=== PATIENT | female | born 1970 | race Caucasian/White ===

== ENCOUNTER 2016-05-24 02:16 | Emergency (ER) | payer MEDICAID ==
[~2016-05-24] VITALS: Ht 157.5 cm; Wt 112.2 kg
[2016-05-24 02:16] VITALS: Ht 157.5 cm; Wt 112.2 kg
--- OUTSIDE RECORDS SUMMARY | 2016-05-24 02:24 | XMS REPORT | Referral Summary ---
Author Organization Unknown Address Unknown Phone Unavailable Care Team Providers Care Behavioral Geneticist Name Role Phone Itzel Kerns Primary Care Physician [phone] Encounter VC Date(s): 04/05/14 - 04/05/14 [facility] [address] [place] [id number] Discharge Diagnosis: Sinusitis Discharge Diagnosis: Bronchitis Discharge Disposition: Home or Self Care Attending Physician: Mo Martin MD Admitting Physician: Mo Martin MD Vital Signs Most recent to 1 oldest [Reference Range]: Temperature Oral 36.6 degC [35.8-37.3 degC] (04/05/14 12:30 PM) Temperature Temporal 36.7 degC Artery [36.3-37.8 (04/05/14 10:09 AM) degC] Peripheral Pulse 75 bpm Rate [60-100 bpm] (04/05/14 12:30 PM) Heart Rate Monitored 69 bpm [60-100 bpm] (04/05/14 11:12 AM) Respiratory Rate 16 br/min [14-20 br/min] (04/05/14 11:12 AM) Blood Pressure 137/89 mmHg [90-140/60-90 mmHg] (04/05/14 12:30 PM) Most recent to 1 oldest [Reference Range]: SpO2 98 % (04/05/14 12:30 PM) Problem List Condition Effective Dates Status Health Status Informant Cardiomyopathy(Confi Resolved rmed) CCF - Congestive Active cardiac failure unspec(Confirmed) Diabetes(Confirmed) Resolved HTN(Confirmed) Resolved Hepatitis/jaudice(Co Active nfirmed) Mitral Resolved regurgitation(Confir med) Obesity Active unspec(Confirmed) Allergies, Adverse Reactions, Alerts Substance Reaction Severity Status amoxicillin Active Latex1 Active lisinopril Active 1RASH Medications albuterol CFC free 90 mcg/inh inhalation aerosol 2 puffs, Inhalation, QID, as needed for wheezing, # 1 Each, 0 Refill(s), Pharmacy: [facility] [id number] Start Date: 12/28/13 Status: Ordered albuterol CFC free 90 mcg/inh inhalation aerosol 1 puffs, Inhalation, QID, as needed for wheezing, # 6.7 g, 0 Refill(s), Pharmacy : [facility] [id number] Start Date: 04/05/14 Status: Ordered Aspir-Low mg, Oral, Daily, 0 Refill(s) Start Date: 08/31/13 Status: Ordered azithromycin 250 mg oral tablet 1 packets, Oral, Once, as directed on package labeling, # 6 tabs, 0 Refill(s), Pharmacy: [facility] [id number], 1 packets Oral Once,Instr:as directed on package labeling Special Instructions: as directed on package labeling Start Date: 04/05/14 Status: Ordered candesartan 4 mg oral tablet See Instructions, TAKE ONE TABLET BY MOUTH EVERY DAY, # 30 tabs, 3 Refill(s), Pharmacy: [facility] [id number], TAKE ONE TABLET BY MOUTH EVERY DAY Special Instructions: TAKE ONE TABLET BY MOUTH EVERY DAY Start Date: 01/18/14 Status: Ordered carvedilol 12.5 mg oral tablet See Instructions, 1/2 tabs mg Oral BID, # 60 tabs, 3 Refill(s), Pharmacy: [facility] [id number], 1/2 tabs mg Oral BID Special Instructions: 1/2 tabs mg Oral BID Start Date: 12/11/13 Status: Ordered citalopram 20 mg oral tablet See Instructions, TAKE ONE TABLET BY MOUTH EVERY DAY, # 30 tabs, 3 Refill(s), Pharmacy: [facility] [id number], TAKE ONE TABLET BY MOUTH EVERY DAY Special Instructions: TAKE ONE TABLET BY MOUTH EVERY DAY Start Date: 03/11/14 Status: Ordered famotidine 20 mg oral tablet 1 tabs, Oral, BID, # 60 tabs, 3 Refill(s), Pharmacy: [facility] [id number], 1 tabs Oral BID Start Date: 12/11/13 Status: Ordered Farxiga 5 mg oral tablet 1 tabs, Oral, Daily, # 30 tabs, 11 Refill(s) Start Date: 10/09/13 Status: Ordered Flector Patch 1.3% topical film, extended release 1 patches, Topical, BID, as needed for pain, # 30 patches, 1 Refill(s), Pharmacy : [facility] Start Date: 12/28/13 Status: Ordered furosemide 20 mg oral tablet See Instructions, 3 tabs mg Oral BID, 0 Refill(s) Special Instructions: 3 tabs mg Oral BID Start Date: 08/31/13 Status: Ordered Klor-Con M20 mEq, Oral, BID, 0 Refill(s) Start Date: 08/31/13 Status: Ordered Lantus Solostar Pen 100 units/mL subcutaneous solution 36 units, SubCutaneous, Bedtime (once a day), # 15 Each, 3 Refill(s), Pharmacy: [facility], 36 units SubCutaneous Bedtime (once a day) Start Date: 12/31/13 Status: Ordered metFORMIN 500 mg oral tablet 1 tabs, Oral, BID, # 60 tabs, 3 Refill(s), Pharmacy: [facility], 1 tabs Oral BID Start Date: 11/04/13 Status: Ordered NovoLOG FlexPen 100 units/mL subcutaneous solution 12 units, SubCutaneous, TIDAC, # 15 mL, 3 Refill(s), Pharmacy: [facility], 12 units SubCutaneous TIDAC Start Date: 12/31/13 Status: Ordered promethazine 12.5 mg oral tablet 1 tabs, Oral, q6hr, # 20 tabs, 0 Refill(s), Pharmacy: [facility], 1 tabs Oral q6hr Start Date: 03/26/14 Stop Date: 04/30/14 Status: Ordered rosuvastatin 20 mg oral tablet 1 tabs, Oral, Bedtime (once a day), # 30 tabs, 11 Refill(s) Start Date: 10/09/13 Status: Ordered spironolactone 25 mg oral tablet 1 tabs, Oral, Daily, # 30 tabs, 0 Refill(s) Start Date: 08/31/13 Status: Ordered Tussionex PennKinetic 10 mg-8 mg/5 mL oral suspension, extended release 5 mL, Oral, q12hr, as needed for cough, X 7 days, # 70 mL, 0 Refill(s) Start Date: 04/05/14 Stop Date: 04/12/14 Status: Ordered Results No data available for this section Immunizations Vaccine Date Refusal Reason influenza virus vaccine, live 11/18/12 pneumococcal 13-valent conjugate vaccine 11/18/12 Procedures Procedure Date Related Diagnosis Body Site Cardiomyopathy section Pacemaker Social History Social History Type Response Smoking Status Never smoker Assessment and Plan Future Scheduled TestsReferral* Return to Clinic 08/31/13 5:06 PM Referrals to Other Providers Referred by: Luba Kerns DO
--- OUTSIDE RECORDS SUMMARY | 2016-05-24 02:24 | XMS REPORT | Continuity of Care Document ---
Author Author [facility] Organization [facility] Address Unknown Phone Unavailable Allergies Medications Problems Procedures Results Encounters ACCT No. Visit Date/Time Discharge Status Pt. Type Provider Facility Loc./Unit Complaint [id number] 05/29/2013 11:03:00 05/29/2013 23 :59:59 [facility] Outpatient [id number] 04/07/2013 08:18:00 04/07/2013 23 :59:59 [facility] Outpatient
--- OUTSIDE RECORDS SUMMARY | 2016-05-24 02:24 | XMS REPORT | Referral Summary ---
Author Author [facility] Organization [facility] Address Unknown Phone Unavailable Care Team Providers Care Kiln Tester Name Role Phone Itzel Kerns Primary Care Physician [phone] Encounter VC DONNA [id number] Date(s): 02/03/15 - 02/03/15 [facility] [address], [place] [address] Discharge Diagnosis: Right foot pain Discharge Disposition: 01-Home or Self Care Attending Physician: Tristin Garcia MD Admitting Physician: Mohsen Roberts MD Vital Signs Most recent to 1 oldest [Reference Range]: Temperature Oral 36.8 degC [35.8-37.3 degC] (02/03/15 8:11 AM) Peripheral Pulse 78 bpm Rate [60-100 bpm] (02/03/15 9:21 AM) Respiratory Rate 18 br/min [14-20 br/min] (02/03/15 9:21 AM) Blood Pressure 110/72 mmHg [90-140/60-90 mmHg] (02/03/15 9:21 AM) SpO2 97 % (02/03/15 9:21 AM) Problem List Condition Effective Dates Status Health Status Informant Cardiomyopathy(Confi Active rmed) [facility] - Congestive Active cardiac failure unspec(Confirmed) Diabetes(Confirmed) Resolved HTN(Confirmed) Active Hyperlipidemia(Confi Active rmed) Hepatitis/jaudice(Co < 09/30/13 Resolved nfirmed) Mitral Active regurgitation(Confir med) Obesity Active unspec(Confirmed) Allergies, Adverse Reactions, Alerts Substance Reaction Severity Status amoxicillin Active Latex1 Active lisinopril Active 1RASH Medications albuterol CFC free 90 mcg/inh inhalation aerosol 2 puffs, Inhalation, QID, as needed for wheezing, # 1 Each, 0 Refill(s), Pharmacy: [facility] Start Date: 12/28/13 Status: Ordered Aspir-Low mg, Oral, Daily, 0 Refill(s) Start Date: 08/31/13 Status: Ordered candesartan 4 mg oral tablet See Instructions, TAKE ONE TABLET BY MOUTH EVERY DAY, # 30 tabs, 5 Refill(s), Pharmacy: [facility] [address], TAKE ONE TABLET BY MOUTH EVERY DAY Start Date: 09/16/14 Status: Ordered carvedilol 12.5 mg oral tablet See Instructions, 1/2 tabs mg Oral BID, # 60 tabs, 3 Refill(s), Pharmacy: [facility] [id number], 1/2 tabs mg Oral BID Start Date: 12/24/14 Status: Ordered citalopram 20 mg oral tablet 40 mg 2 tabs, Oral, Daily, X 30 days, # 60 tabs, 5 Refill(s), Pharmacy: [facility] [address], 2 tabs Oral Daily,x30 days Start Date: 12/16/14 Stop Date: 06/14/15 Status: Ordered Crestor 20 mg oral tablet See Instructions, 1 tabs Oral Bedtime (once a day), # 30 tabs, eRx: [place] [address], 1 tabs Oral Bedtime (once a day) Start Date: 01/19/15 Status: Ordered famotidine 20 mg oral tablet 20 mg 1 tabs, Oral, BID, # 60 tabs, 3 Refill(s), Pharmacy: [facility] [address] , 1 tabs Oral BID Start Date: 07/21/14 Status: Ordered Flector Patch 1.3% topical film, extended release 1 patches, Topical, BID, as needed for pain, # 60 patches, 1 Refill(s), Pharmacy : [facility] [address] Start Date: 01/03/15 Status: Ordered furosemide 20 mg oral tablet See Instructions, 3 tabs mg Oral BID, # 540 Each, 3 Refill(s), Pharmacy: [facility] [address], 3 tabs mg Oral BID Start Date: 07/21/14 Status: Ordered glucometer strips glucometer strips, See Instructions, Contour Next strips Test 4x/day dx: uncontrolled DM, # 1 boxes, 11 Refill(s), Pharmacy: [facility] [place] [address], Contour Next strips; Test 4x/day; dx: uncontrolled DM Start Date: 08/31/14 Status: Ordered ibuprofen 600 mg oral tablet 600 mg 1 tabs, Oral, TID, # 90 tabs, 0 Refill(s), Pharmacy: [facility], 1 tabs Oral TID Start Date: 01/26/15 Status: Ordered Klor-Con M20 oral tablet, extended release 20 mEq 1 tabs, Oral, BID, # 180 tabs, 3 Refill(s), Pharmacy: [facility], 1 tabs Oral BID Start Date: 07/21/14 Status: Ordered Lantus Solostar Pen 100 units/mL subcutaneous solution 36 units, SubCutaneous, Bedtime (once a day), # 15 Each, 5 Refill(s), Pharmacy: [facility] [place] [address], 36 units SubCutaneous Bedtime (once a day) Start Date: 01/19/15 Status: Ordered metFORMIN 500 mg oral tablet 1 tabs, Oral, BID, # 60 tabs, 5 Refill(s), Pharmacy: [facility] [address], 1 tabs Oral BID Start Date: 05/06/14 Status: Ordered [place] 5 mg-325 mg oral tablet 1 tabs, Oral, q6hr, as needed for pain, # 12 tabs, 0 Refill(s) Start Date: 02/03/15 Stop Date: 02/10/15 Status: Ordered NovoLOG FlexPen 100 units/mL subcutaneous solution 12 units, SubCutaneous, TIDAC, # 15 mL, 3 Refill(s), Pharmacy: [facility], [facility], 12 units SubCutaneous TIDAC Start Date: 12/31/13 Status: Ordered Relion Pen [place] 31gx6 mm Relion Pen [place] 31gx6 mm, See Instructions, [facility] ad directed Dx:250.00, # 1 bottles, 5 Refill(s), Pharmacy: [facility] [place] [address], [facility] ad directed; Dx: 250.00 Start Date: 09/16/14 Status: Ordered spironolactone 25 mg oral tablet 1 tabs, Oral, Daily, # 30 tabs, 0 Refill(s) Start Date: 08/31/13 Status: Ordered Results No data available for this section Immunizations Vaccine Date Refusal Reason influenza virus vaccine, live 11/18/12 pneumococcal 23-polyvalent vaccine 11/18/12 Procedures Procedure Date Related Diagnosis Body Site Cardiomyopathy section Pacemaker Social History Social History Type Response Smoking Status Never smoker Assessment and Plan No data available for this section
--- OUTSIDE RECORDS SUMMARY | 2016-05-24 02:24 | XMS REPORT | Referral Summary ---
Author Author [facility], [facility], Family Medicine Organization [facility], [facility] Address Unknown Phone Unavailable Care Team Providers Care Air Conditioning Mechanic Industrial Name Role Phone Itzel Kerns Primary Care Physician [phone] Encounter VC Date(s): 12/16/14 - 12/16/14 [facility], [facility], [id number] [place] [address] Discharge Diagnosis: Acute URI Discharge Disposition: 01-Home or Self Care Attending Physician: Luba Kerns DO Vital Signs Most recent to 1 oldest [Reference Range]: Apical Heart Rate 80 bpm [60-100 bpm] (12/16/14 8:59 AM) Blood Pressure 128/78 mmHg [90-140/60-90 mmHg] (12/16/14 8:59 AM) SpO2 98 % (12/16/14 8:59 AM) Problem List Condition Effective Dates Status Health Status Informant Cardiomyopathy(Confi Active rmed) CCF - Congestive Active cardiac failure unspec(Confirmed) Diabetes(Confirmed) Resolved DM2 (diabetes Active mellitus, type 2)(Confirmed) HTN(Confirmed) Active Hyperlipidemia(Confi Active rmed) Hepatitis/jaudice(Co < 09/30/13 Resolved nfirmed) Mitral Active regurgitation(Confir med) Obesity Active unspec(Confirmed) Allergies, Adverse Reactions, Alerts Substance Reaction Severity Status amoxicillin Active Latex1 Active lisinopril Active 1RASH Medications albuterol CFC free 90 mcg/inh inhalation aerosol 2 puffs, Inhalation, QID, as needed for wheezing, # 1 Each, 11 Refill(s), Pharmacy: [facility] Start Date: 04/06/15 Status: Ordered Aspir-Low mg, Oral, Daily, 0 Refill(s) Start Date: 08/31/13 Status: Ordered candesartan 4 mg oral tablet See Instructions, TAKE ONE TABLET BY MOUTH ONCE DAILY, # 30 tabs, eRx: [facility] 346, TAKE ONE TABLET BY MOUTH ONCE DAILY Start Date: 05/23/15 Status: Ordered carvedilol 12.5 mg oral tablet See Instructions, 1/2 tabs mg Oral BID, # 60 tabs, 3 Refill(s), Pharmacy: [facility] 346, 1/2 tabs mg Oral BID Start Date: 12/24/14 Status: Ordered citalopram 20 mg oral tablet 40 mg 2 tabs, Oral, Daily, X 30 days, # 60 tabs, 5 Refill(s), Pharmacy: [place] [address], 2 tabs Oral Daily,x30 days Start Date: 05/20/15 Stop Date: 11/16/15 Status: Ordered Crestor 20 mg oral tablet See Instructions, 1 tabs Oral Bedtime (once a day), # 30 tabs, eRx: [place] [address], 1 tabs Oral Bedtime (once a day) Start Date: 05/23/15 Status: Ordered famotidine 20 mg oral tablet 20 mg 1 tabs, Oral, BID, # 60 tabs, 5 Refill(s), Pharmacy: [place] [address] , 1 tabs Oral BID Start Date: 03/03/15 Status: Ordered Flector Patch 1.3% topical film, extended release 1 patches, Topical, BID, as needed for pain, # 60 patches, 1 Refill(s), Pharmacy : [place] [address] Start Date: 01/03/15 Status: Ordered furosemide 20 mg oral tablet See Instructions, 3 tabs mg Oral BID, # 540 Each, 3 Refill(s), Pharmacy: [place] [address], 3 tabs mg Oral BID Start Date: 07/21/14 Status: Ordered glucometer strips glucometer strips, See Instructions, Contour Next strips Test 4x/day dx: uncontrolled DM, # 1 boxes, 11 Refill(s), Pharmacy: [place] [address], Contour Next strips; Test 4x/day; dx: uncontrolled DM Start Date: 08/31/14 Status: Ordered ibuprofen 600 mg oral tablet 600 mg 1 tabs, Oral, TID, # 90 tabs, 0 Refill(s), Pharmacy: [place] [address], 1 tabs Oral TID Start Date: 01/26/15 Status: Ordered Klor-Con M20 oral tablet, extended release 20 mEq 1 tabs, Oral, BID, # 180 tabs, 3 Refill(s), Pharmacy: [facility], 1 tabs Oral BID Start Date: 07/21/14 Status: Ordered Lantus Solostar Pen 100 units/mL subcutaneous solution 36 units, SubCutaneous, Bedtime (once a day), # 15 Each, 5 Refill(s), Pharmacy: [facility], 36 units SubCutaneous Bedtime (once a day) Start Date: 05/30/15 Status: Ordered metFORMIN 500 mg oral tablet 500 mg 1 tabs, Oral, BID, # 60 tabs, 5 Refill(s), Pharmacy: [facility], 1 tabs Oral BID Start Date: 03/03/15 Status: Ordered NovoLOG FlexPen 100 units/mL subcutaneous solution 12 units, SubCutaneous, TIDAC, # 15 mL, 5 Refill(s), Pharmacy: [facility], 12 units SubCutaneous TIDAC Start Date: 05/30/15 Status: Ordered Relion Pen Neddles 31gx6 mm Relion Pen Neddles 31gx6 mm, See Instructions, [facility] ad directed Dx:250.00, # 1 bottles, 5 Refill(s), Pharmacy: [facility], [facility] ad directed; Dx: 250.00 Start Date: 09/16/14 Status: Ordered spironolactone 25 mg oral tablet 1 tabs, Oral, Daily, # 30 tabs, 0 Refill(s) Start Date: 08/31/13 Status: Ordered Results Hematology Most recent to 1 oldest [Reference Range]: WBC [4.8-10.8 10.9 10*3/uL 10*3/uL] *HI* (12/16/14 9:23 AM) RBC [4.00-5.20] 4.34 (12/16/14 9:23 AM) Hgb [12.0-16.0 12.9 gm/dL gm/dL] (12/16/14 9:23 AM) Hct [37.0-47.0 %] 38.8 % (12/16/14 9:23 AM) MCV [82.0-99.0 fL] 89.4 fL (12/16/14 9:23 AM) MCH [27.0-32.0 pg] 29.7 pg (12/16/14 AM) MCHC [32.0-36.0 33.2 gm/dL gm/dL] (12/16/14 AM) RDW [11.5-14.5 %] 13.7 % (12/16/14 AM) Platelet [150-400 335 10*3/uL 10*3/uL] (12/16/14 AM) MPV [8.8-14.8 fL] 10.6 fL (12/16/14 AM) Immature 0.3 % Granulocytes (12/16/14) [0.0-1.0 %] Neutrophils [51-75 57 % %] (12/16/14 AM) Lymphocytes [20-46 33 % %] (12/16/14 AM) Monocytes [4-11 %] 8 % (12/16/14 AM) Eosinophils [0-4 %] 2 % (12/16/14 AM) Basophils [0-2 %] 0 % (12/16/14 AM) Neutro Absolute 6.17 10*3 [1.90-7.00 10*3] (12/16/14 AM) Lymph Absolute 3.57 10*3 [0.80-3.30 10*3] *HI* (12/16/14 AM) [place] Absolute 0.87 10*3 [0.30-1.00 10*3] (12/16/14 AM) Eos Absolute 0.25 10*3 [0.00-0.50 10*3] (12/16/14 AM) Baso Absolute 0.02 10*3 [0.00-0.20 10*3] (12/16/14 AM) Chemistry Most recent to 1 oldest [Reference Range]: Sodium Lvl [135-144 141 mEq/L mEq/L] (12/16/14 AM) Potassium Lvl 4.6 mEq/L [3.5-5.2 mEq/L] (12/16/1423 AM) Chloride [99-111 105 mEq/L mEq/L] (12/16/14 AM) CO2 [22-31 mEq/L] 27 mEq/L (12/16/14 AM) AGAP [3-20] 9 (12/16/14 AM) BUN [7-19 mg/dL] 12 mg/dL (12/16/14 AM) Glucose Lvl [70-99 284 mg/dL mg/dL] *HI* (12/16/14 AM) Creatinine Lvl 0.73 mg/dL [0.57-1.11 mg/dL] (12/16/14 AM) eGFR [>60 mL/min] >60 mL/min 1 (12/16/14 AM) Calcium Lvl 9.6 mg/dL [8.9-10.5 mg/dL] (12/16/14 AM) Albumin Lvl [3.5-5.0 3.9 gm/dL gm/dL] (12/16/14 AM) Total Protein 7.0 gm/dL [6.4-8.3 gm/dL] (12/16/14 AM) Globulin [1.8-4.0 3.1 gm/dL gm/dL] (12/16/14 AM) ALT [0-55 U/L] 11 U/L (12/16/14 AM) AST [5-34 U/L] 9 U/L (12/16/14 AM) Alk Phos [40-150 108 U/L U/L] (12/16/14 AM) Bili Total [0.2-1.2 0.7 mg/dL mg/dL] (12/16/14 AM) Chol [0-199 mg/dL] 119 mg/dL (12/16/14 AM) Trig [0-149 mg/dL] 89 mg/dL (12/16/14 AM) HDL [40-84 mg/dL] 34 mg/dL *LOW* (12/16/14 AM) LDL [0-130 mg/dL] 67 mg/dL (12/16/14 AM) VLDL Cholesterol 18 mg/dL [0-28 mg/dL] (12/16/14 9:23 AM) Cardiac Risk 3.5 [0.0-5.0] (12/16/14 9:23 AM) TSH with Reflex Free 0.88 T4 [0.35-4.94] (12/16/14 9:23 AM) Hgb A1c [4.1-5.6 %] 8.5 % *HI* (12/16/14 9:23 AM) eAvg Glucose 197.3 mg/dL (12/16/14 9:23 AM) 1Result Comment: Multiply eGFR results by 1.21 for race. Microbiology Reports TEST: Urine Culture STATUS: Auth (Verified) BODY SITE: SOURCE: Urine COLLECTED DATE/TIME: 12/16/14 9:12 AM Urine Culture Escherichia coli >100,000 cfu/ml ORGANISM:Escherichia coli Immunizations Vaccine Date Refusal Reason influenza virus vaccine, live 11/18/12 pneumococcal 23-polyvalent vaccine 11/18/12 Procedures Procedure Date Related Diagnosis Body Site Cardiomyopathy section Pacemaker Social History Social History Type Response Smoking Status Former smoker Assessment and Plan Extracted from: Title: Ambulatory Patient Education Author: Luba Kerns DO Date: Family Medicine Blood Glucose Monitoring Monitoring your blood glucose (also know as blood sugar) helps you to manage your diabetes. It also helps you and your health care provider monitor your diabetes and determine how well your treatment plan is working. WHY SHOULD YOU MONITOR YOUR BLOOD GLUCOSE? It can help you understand how food, exercise, and medicine affect your blood glucose. It allows you to know what your blood glucose is at any given moment. You can quickly tell if you are having low blood glucose (hypoglycemia) or high blood glucose (hyperglycemia). It can help you and your health care provider know how to adjust your medicines. It can help you understand how to manage an illness or adjust medicine for exercise. WHEN SHOULD YOU TEST? Your health care provider will help you decide how often you should check your blood glucose. This may depend on the type of diabetes you have, your diabetes control, or the types of medicines you are taking. Be sure to write down all of your blood glucose readings so that this information can be reviewed with your health care provider. See below for examples of testing times that your health care provider may suggest. Type 1 Diabetes Test 4 times a day if you are in good control, using an insulin pump, or perform multiple daily injections. If your diabetes is not well controlled or if you are sick, you may need to monitor more often. It is a good idea to also monitor: Before and after exercise. Between meals and 2 hours after a meal. Occasionally between 2:00 a.m. and 3:00 a.m. Type 2 Diabetes It can vary with each person, but generally, if you are on insulin, test 4 times a day. If you take medicines by mouth (orally), test 2 times a day. If you are on a controlled diet, test once a day. If your diabetes is not well controlled or if you are sick, you may need to monitor more often. HOW TO MONITOR YOUR BLOOD GLUCOSE Supplies Needed Blood glucose meter. Test strips for your meter. Each meter has its own strips. You must use the strips that go with your own meter. A pricking needle (lancet). A device that holds the lancet (lancing device). A journal or log book to write down your results. Procedure Wash your hands with soap and water. Alcohol is not preferred. Prick the side of your finger (not the tip) with the lancet. Gently milk the finger until a small drop of blood appears. Follow the instructions that come with your meter for inserting the test strip, applying blood to the strip, and using your blood glucose meter. Other Areas to Get Blood for Testing Some meters allow you to use other areas of your body (other than your finger) to test your blood. These areas are called alternative sites. The most common alternative sites are: The forearm. The thigh. The back area of the lower leg. The palm of the hand. The blood flow in these areas is slower. Therefore, the blood glucose values you get may be delayed, and the numbers are different from what you would get from your fingers. Do not use alternative sites if you think you are having hypoglycemia. Your reading will not be accurate. Always use a finger if you are having hypoglycemia. Also, if you cannot feel your lows (hypoglycemia unawareness), always use your fingers for your blood glucose checks. ADDITIONAL TIPS FOR GLUCOSE MONITORING Do not reuse lancets. Always carry your supplies with you. All blood glucose meters have a 24-hour "hotline" number to call if you have questions or need help. Adjust (calibrate) your blood glucose meter with a control solution after finishing a few boxes of strips. BLOOD GLUCOSE RECORD KEEPING It is a good idea to keep a daily record or log of your blood glucose readings. Most glucose meters, if not all, keep your glucose records stored in the meter. Some meters come with the ability to download your records to your home computer. Keeping a record of your blood glucose readings is especially helpful if you are wanting to look for patterns. Make notes to go along with the blood glucose readings because you might forget what happened at that exact time. Keeping good records helps you and your health care provider to work together to achieve good diabetes management. Document Released: 02/14/2004 Document Revised: 06/28/2014 Document Reviewed: [employer] Patient Information 2015 [employer]. This information is not intended to replace advice given to you by your health care provider. Make sure you discuss any questions you have with your health care provider. No follow up information was provided. Extracted from: Title: OV: UTI, cough, DM, mood, Author: Luba Kerns DO Date: 12/16/14 HLD Assessment/Plan 1.Cystitis complicated d/t diabetes -- tx w/ Cipro 500mg BID x 10 days Culture urine push fluids CBC w/ diff today f/u if not improving Diflucan 150mg po x 1 RX also sent to pharmacy if she develops vaginal dc w/ itch after abx. Ordered: CBC w/ Differential Office Visit Level 4 Est 98343 Return to Clinic 2.Acute URI Viral etiology tx symptomatically RX Guaifenesin-dextormethorphan Ordered: Office Visit Level 4 Est 64833 Return to Clinic 3.DM2 (diabetes mellitus, type 2) A1c today She is non-compliantw/ her insulin.We have many discussions about this in the past. Ordered: Comprehensive Metabolic Panel Hemoglobin A1c Office Visit Level 4 Est 23842 Return to Clinic 4.Depression Increase Celexa to 40mg daily. This would be max dose. Discussed window to effectiveness. Ordered: Office Visit Level 4 Est 01547 Return to Clinic TSH with Reflex Free T4 5.HLD (hyperlipidemia) Fasting lipids today She is on Crestor 20mg daily. Ordered: Lipid Panel Return to Clinic 6.Dysuria see #1 Ordered: Return to Clinic Urine Culture Orders: ciprofloxacin, 500 mg 1 tabs, Oral, q12hr, X 10 days, # 20 tabs, 0 Refill(s), Pharmacy: [facility] 346, 1 tabs Oral q12hr,x10 days citalopram, 40 mg 2 tabs, Oral, Daily, X 30 days, # 60 tabs, 5 Refill(s), Pharmacy: [facility] 346, 2 tabs Oral Daily,x30 days dextromethorphan-guaiFENesin, 2 caps, Oral, q4hr, as needed for cough, # 60 caps, 0 Refill(s), Pharmacy: [facility] 346 Referrals to Other Providers Referred by: Luba Kerns DO
--- OUTSIDE RECORDS SUMMARY | 2016-05-24 02:24 | XMS REPORT | Referral Summary ---
Author Author [facility] Organization [facility] Address Unknown Phone Unavailable Care Team Providers Care Shoe Stitcher Odd Name Role Phone Itzel Kerns Primary Care Physician [phone] Encounter VC Date(s): 03/21/15 - 03/21/15 [facility] [address] [id number] [facility] Discharge Diagnosis: Acute tonsillitis Discharge Disposition: 01-Home or Self Care Attending Physician: Provider, Immediate Care Attending Physician: Vazquez Ayoub APRN Admitting Physician: Provider, Immediate Care Vital Signs Most recent to 1 oldest [Reference Range]: Temperature Oral 36.9 degC [35.8-37.3 degC] (03/21/15 11:56 AM) Peripheral Pulse 72 bpm Rate [60-100 bpm] (03/21/15 11:56 AM) Blood Pressure 140/90 mmHg [90-140/60-90 mmHg] (03/21/15 11:56 AM) SpO2 97 % (03/21/15 11:56 AM) Problem List Condition Effective Dates Status [...] wheezing, # 1 Each, 11 Refill(s), Pharmacy: [facility] Start Date: 03/14/15 Status: Ordered Aspir-Low mg, Oral, Daily, 0 Refill(s) Start Date: 08/31/13 Status: Ordered candesartan 4 mg oral tablet See Instructions, TAKE ONE TABLET BY MOUTH EVERY DAY, # 30 tabs, 5 Refill(s), Pharmacy: [facility] 346, TAKE ONE TABLET BY MOUTH EVERY DAY Start Date: 09/16/14 Status: Ordered carvedilol 12.5 mg oral tablet See Instructions, 1/2 tabs mg Oral BID, # 60 tabs, 3 Refill(s), Pharmacy: [place] [address], 1/2 tabs mg Oral BID Start Date: 12/24/14 Status: Ordered cefdinir 300 mg oral capsule 300 mg 1 caps, Oral, q12hr, X 10 days, # 20 caps, 0 Refill(s), Pharmacy: [place] [address], 1 caps Oral q12hr,x10 days Start Date: 03/21/15 Stop Date: 03/31/15 Status: Ordered citalopram 20 mg oral tablet 40 mg 2 tabs, Oral, Daily, X 30 days, # 60 tabs, 5 Refill(s), Pharmacy: [place] [address], 2 tabs Oral Daily,x30 days Start Date: 12/16/14 Stop Date: 06/14/15 Status: Ordered Crestor 20 mg oral tablet See Instructions, 1 tabs Oral Bedtime (once a day), # 30 tabs, eRx: [place] [address], 1 tabs Oral Bedtime (once a day) Start Date: 03/02/15 Status: Ordered famotidine 20 mg oral tablet 20 mg 1 tabs, Oral, BID, # 60 tabs, 5 Refill(s), Pharmacy: [place] [address] , 1 tabs Oral BID Start Date: 03/03/15 Status: Ordered Flector Patch 1.3% topical film, extended release 1 patches, Topical, BID, as needed for pain, # 60 patches, 1 Refill(s), Pharmacy : [place] [address] Start Date: 01/03/15 Status: Ordered furosemide 20 mg oral tablet See Instructions, 3 tabs mg Oral BID, # 540 Each, 3 Refill(s), Pharmacy: [place] [address], 3 tabs mg Oral BID Start Date: 07/21/14 Status: Ordered glucometer strips glucometer strips, See Instructions, Contour Next strips Test 4x/day dx: uncontrolled DM, # 1 boxes, 11 Refill(s), Pharmacy: [facility], Contour Next strips; Test 4x/day; dx: uncontrolled DM Start Date: 08/31/14 Status: Ordered ibuprofen 600 mg oral tablet 600 mg 1 tabs, Oral, TID, # 90 tabs, 0 Refill(s), Pharmacy: [facility], 1 tabs Oral TID Start Date: 01/26/15 Status: Ordered Klor-Con M20 oral tablet, extended release 20 mEq 1 tabs, Oral, BID, # 180 tabs, 3 Refill(s), Pharmacy: [facility], 1 tabs Oral BID Start Date: 07/21/14 Status: Ordered Lantus Solostar Pen 100 units/mL subcutaneous solution 36 units, SubCutaneous, Bedtime (once a day), # 15 Each, 5 Refill(s), Pharmacy: [facility], 36 units SubCutaneous Bedtime (once a day) Start Date: 01/19/15 Status: Ordered metFORMIN 500 mg oral tablet 500 mg 1 tabs, Oral, BID, # 60 tabs, 5 Refill(s), Pharmacy: [facility], 1 tabs Oral BID Start Date: 03/03/15 Status: Ordered NovoLOG FlexPen 100 units/mL subcutaneous solution 12 units, SubCutaneous, TIDAC, # 15 mL, 3 Refill(s), Pharmacy: [facility], 12 units SubCutaneous TIDAC Start Date: 12/31/13 Status: Ordered Relion Pen Neddles 31gx6 mm Relion Pen Neddles 31gx6 mm, See Instructions, [facility] ad directed Dx:250.00, # 1 bottles, 5 Refill(s), Pharmacy: [facility], [facility] ad directed; Dx: 250.00 Start [...] smoker Assessment and Plan Extracted from: Title: Office Visit Note Author: Vazquez Ayoub APRN Date: 03/21/15 Assessment/Plan 1.Acute tonsillitis Instructed patient on medication, use, common side effects, and administration. Discussed proper OTC medication, including [ Tylenol or ibuprofen], for symptomatic relief. salt water gargles, lozenges , Chloraseptic spray, hot/cold food or drinks. Discussed hygiene precautions: Patient needs to replace tooth brush, tooth paste, or mouth wash bottles. Dishes (cups, plates, silverware) all need to be washed after each use. Instructed no kissing or sharing utensils until on antibiotic for 24 hours. Instructed patient if symptoms worsen or new symptoms arise to seek medical attention here or at the ER. Instructed patient if symptoms do not improve follow up with PCP in 2-3 days. Patient voiced understanding and agreed with treatment plan. Patient dismissed in stable condition. Ordered: Office Visit Level 3 Est [id number] Orders: cefdinir, 300 mg 1 caps, Oral, q12hr, X 10 days, # 20 caps, 0 Refill(s ), Pharmacy: [facility], 1 caps Oral q12hr,x10 days
--- OUTSIDE RECORDS SUMMARY | 2016-05-24 02:24 | XMS REPORT | Referral Summary ---
Author Author Via LEANNE Blake, [facility], [facility] Organization Via ChristineLEANNE [place], [facility] Address Unknown Phone Unavailable Care Team Providers Care Cnc Cutting Operator Name Role Phone Itzel Kerns Primary Care Physician [phone] Encounter Date(s): 01/26/15 - 01/26/15 Via LEANNE Blake, [address] [address] Discharge Diagnosis: Cough Discharge Diagnosis: Costochondritis Discharge Disposition: 01-Home or Self Care Attending Physician: Luba Kerns DO Admitting Physician: Luba Kerns DO Vital Signs Most recent to 1 oldest [Reference Range]: Temperature Oral 37.1 degC [35.8-37.3 degC] (01/26/15 10:06 AM) Peripheral Pulse 82 bpm Rate [60-100 bpm] (01/26/15 10:06 AM) Blood Pressure 118/88 mmHg [90-140/60-90 mmHg] (01/26/15 10:06 AM) SpO2 97 % (01/26/15 10:06 AM) Problem List Condition Effective Dates Status [...] wheezing, # 1 Each, 0 Refill(s), Pharmacy: [facility] Start Date: 12/28/13 Status: Ordered Aspir-Low mg, Oral, Daily, 0 Refill(s) Start Date: 08/31/13 Status: Ordered candesartan 4 mg oral tablet See Instructions, TAKE ONE TABLET BY MOUTH EVERY DAY, # 30 tabs, 5 Refill(s), Pharmacy: [place] [address], TAKE ONE TABLET BY MOUTH EVERY DAY Start Date: 09/16/14 Status: Ordered carvedilol 12.5 mg oral tablet See Instructions, 1/2 tabs mg Oral BID, # 60 tabs, 3 Refill(s), Pharmacy: [place] [address], 1/2 tabs mg Oral BID Start Date: 12/24/14 Status: Ordered citalopram 20 mg oral tablet 40 mg 2 tabs, Oral, Daily, X 30 days, # 60 tabs, 5 Refill(s), Pharmacy: [place] [address], 2 tabs Oral Daily,x30 days Start Date: 12/16/14 Stop Date: 06/14/15 Status: Ordered Crestor 20 mg oral tablet See Instructions, 1 tabs Oral Bedtime (once a day), # 30 tabs, eRx: [place] [address], 1 tabs Oral Bedtime (once a day) Start Date: 01/19/15 Status: Ordered famotidine 20 mg oral tablet 20 mg 1 tabs, Oral, BID, # 60 tabs, 3 Refill(s), Pharmacy: [place] [address] , 1 tabs Oral BID Start Date: 07/21/14 Status: Ordered Flector Patch 1.3% topical film, extended release 1 patches, Topical, BID, as needed for pain, # 60 patches, 1 Refill(s), Pharmacy : [place] [address] Start Date: 01/03/15 Status: Ordered furosemide 20 mg oral tablet See Instructions, 3 tabs mg Oral BID, # 540 Each, 3 Refill(s), Pharmacy: [place] [address], 3 tabs mg Oral BID Start Date: 07/21/14 Status: Ordered glucometer strips glucometer strips, See Instructions, Contour Next strips Test 4x/day dx: uncontrolled DM, # 1 boxes, 11 Refill(s), Pharmacy: [place] [address], Contour Next strips; Test 4x/day; dx: uncontrolled DM Start Date: 08/31/14 Status: Ordered ibuprofen 600 mg oral tablet 600 mg 1 tabs, Oral, TID, # 90 tabs, 0 Refill(s), Pharmacy: [facility], 1 tabs Oral TID Start Date: 01/26/15 Status: Ordered Klor-Con M20 oral tablet, extended release 20 mEq 1 tabs, Oral, BID, # 180 tabs, 3 Refill(s), Pharmacy: [facility], 1 tabs Oral BID Start Date: 07/21/14 Status: Ordered Lantus Solostar Pen 100 units/mL subcutaneous solution 36 units, SubCutaneous, Bedtime (once a day), # 15 Each, 5 Refill(s), Pharmacy: [facility], 36 units SubCutaneous Bedtime (once a day) Start Date: 01/19/15 Status: Ordered metFORMIN 500 mg oral tablet 1 tabs, Oral, BID, # 60 tabs, 5 Refill(s), Pharmacy: [facility], 1 tabs Oral BID Start Date: 05/06/14 Status: Ordered NovoLOG FlexPen 100 units/mL subcutaneous solution 12 units, SubCutaneous, TIDAC, # 15 mL, 3 Refill(s), Pharmacy: [facility], 12 units SubCutaneous TIDAC Start Date: 12/31/13 Status: Ordered Relion Pen Neddles 31gx6 mm Relion Pen Neddles 31gx6 mm, See Instructions, [facility] ad directed Dx:250.00, # 1 bottles, 5 Refill(s), Pharmacy: [facility], [facility] ad directed; Dx: 250.00 Start Date: 09/16/14 [...] Smoking Status Never smoker Assessment and Plan Extracted from: Title: Ambulatory Patient Education Author: Luba Kerns DO Date: 01/26/15 Allergy Cough, Adult A cough is a reflex. It helps you clear your throat and airways. A cough can help heal your body. A cough can last 2 or 3 weeks (acute) or may last more than 8 weeks (chronic). Some common causes of a cough can include an infection, allergy, or a cold. HOME CARE Only take medicine as told by your doctor. If given, take your medicines (antibiotics) as told. Finish them even if you start to feel better. Use a cold steam vaporizer or humidifier in your home. This can help loosen thick spit (secretions). Sleep so you are almost sitting up (semi-upright). Use pillows to do this. This helps reduce coughing. Rest as needed. Stop smoking if you smoke. GET HELP RIGHT AWAY IF: You have yellowish-white fluid (pus) in your thick spit. Your cough gets worse. Your medicine does not reduce coughing, and you are losing sleep. You cough up blood. You have trouble breathing. Your pain gets worse and medicine does not help. You have a fever. MAKE SURE YOU: Understand these instructions. Will watch your condition. Will get help right away if you are not doing well or get worse. Document Released: 10/25/2011 Document Revised: 06/28/2014 Document Reviewed: ExitCare Patient Information 2015 [employer]. This information is not intended to replace advice given to you by your health care provider. Make sure you discuss any questions you have with your health care provider. No follow up information was provided. Extracted from: Title: OV: ER f/u, costochondritis Author: Luba Kerns DO Date: 01/26/15 Assessment/Plan 1.Costochondritis Continue NSAID. RX for ibuprofen sent to pharmacy. Watch for worsening symptoms. Reviewed ER documentation w/ pt. Ordered: Office Visit Level 3 Est 05606 Return to Clinic 2.Cough Probably viral etiology. Treat symptomaticallyOTC Discussedmore concerning signs/symptoms for which towatch. Ordered: Office Visit Level 3 Est 10389 Return to Clinic Orders: ibuprofen, 600 mg 1 tabs, Oral, TID, # 90 tabs, 0 Refill(s), [facility], 1 tabs Oral TID She is due for DM visit in February Referrals to Other Providers Referred by: Luba Kerns DO
--- OUTSIDE RECORDS SUMMARY | 2016-05-24 02:24 | XMS REPORT | Referral Summary ---
Author Author Via LEANNE Blake, [facility], [facility] Organization Via LEANNE Blake, [facility] Address Unknown Phone Unavailable Care Team Providers Care Enterprise Integration Developer Name Role Phone Itzel Kerns Primary Care Physician [phone] Encounter VC Date(s): 09/23/15 - 09/23/15 Via LEANNE Blake, [address] [address]- [place] Discharge Diagnosis: Well woman exam with routine gynecological exam Discharge Disposition: 01-Home or Self Care Attending Physician: Luba Kerns DO Admitting Physician: Luba Kerns DO Vital Signs Most recent to 1 oldest [Reference Range]: Peripheral Pulse 68 bpm Rate [60-100 bpm] (09/23/15 3:43 PM) Blood Pressure 124/98 mmHg [90-140/60-90 mmHg] (09/23/15 3:43 PM) Problem List Condition Effective Dates Status [...] wheezing, # 1 Each, 11 Refill(s), Pharmacy: [facility] Start Date: 04/06/15 Status: Ordered Aspir-Low mg, Oral, Daily, 0 Refill(s) Start Date: 08/31/13 Status: Ordered candesartan 4 mg oral tablet See Instructions, TAKE ONE TABLET BY MOUTH ONCE DAILY, # 30 tabs, eRx: [facility], TAKE ONE TABLET BY MOUTH ONCE DAILY Start Date: 08/09/15 Status: Ordered carvedilol 12.5 mg oral tablet See Instructions, 1/2 tabs mg Oral BID, # 60 tabs, 3 Refill(s), Pharmacy: [place] [address], 1/2 tabs mg Oral BID Start Date: 12/24/14 Status: Ordered citalopram 20 mg oral tablet 40 mg 2 tabs, Oral, Daily, X 30 days, # 60 tabs, 5 Refill(s), Pharmacy: [place] [address], 2 tabs Oral Daily,x30 days Start Date: 05/20/15 Stop Date: 11/16/15 Status: Ordered Crestor 20 mg oral tablet See Instructions, TAKE ONE TABLET BY MOUTH ONCE DAILY AT BEDTIME, # 30 tabs, eRx : [place] [address], TAKE ONE TABLET BY MOUTH ONCE DAILY AT BEDTIME Start Date: 08/09/15 Status: Ordered famotidine 20 mg oral tablet 20 mg 1 tabs, Oral, BID, # 60 tabs, 5 Refill(s), Pharmacy: [place] [address] , 1 tabs Oral BID Start Date: 03/03/15 Status: Ordered Flector Patch 1.3% topical film, extended release 1 patches, Topical, BID, as needed for pain, # 60 patches, 1 Refill(s), Pharmacy : [place] [address] Start Date: 01/03/15 Status: Ordered furosemide 20 mg oral tablet See Instructions, TAKE THREE TABLETS BY MOUTH TWICE DAILY, # 540 tabs, eRx: [place] [address], TAKE THREE TABLETS BY MOUTH TWICE DAILY Start Date: 09/14/15 Status: Ordered glucometer strips glucometer strips, See Instructions, Contour Next strips Test 4x/day dx: uncontrolled DM, # 1 boxes, 11 Refill(s), Pharmacy: [place] [address], Contour Next strips; Test 4x/day; dx: uncontrolled DM Start Date: 08/31/14 Status: Ordered ibuprofen 600 mg oral tablet 600 mg 1 tabs, Oral, TID, # 90 tabs, 0 Refill(s), Pharmacy: [place] [address], 1 tabs Oral TID Start Date: 01/26/15 Status: Ordered Klor-Con M20 oral tablet, extended release 20 mEq 1 tabs, Oral, BID, # 180 tabs, 0 Refill(s), Pharmacy: [facility], 1 tabs Oral BID Start Date: 08/11/15 Status: Ordered Lantus Solostar Pen 100 units/mL subcutaneous solution 36 units, SubCutaneous, Bedtime (once a day), # 15 Each, 5 Refill(s), Pharmacy: [facility], 36 units SubCutaneous Bedtime (once a day) Start Date: 05/30/15 Status: Ordered metFORMIN 500 mg oral tablet 500 mg 1 tabs, Oral, BID, # 60 tabs, 5 Refill(s), Pharmacy: [facility], 1 tabs Oral BID Start Date: 03/03/15 Status: Ordered NovoLOG FlexPen 100 units/mL subcutaneous solution 12 units, SubCutaneous, TIDAC, # 15 mL, 5 Refill(s), Pharmacy: [facility], 12 units SubCutaneous TIDAC Start Date: 05/30/15 Status: Ordered Relion Pen Neddles 31gx6 mm Relion Pen Neddles 31gx6 mm, See Instructions, [facility] ad directed Dx:250.00, # 1 bottles, 5 Refill(s), Pharmacy: [facility], [facility] ad directed; Dx: 250.00 Start Date: 09/16/14 Status: Ordered RELION PEN NEEDLES [id number] MIS See Instructions, USE DIRECTED, # 50 unknown unit, eRx: [facility] , USE DIRECTED Start Date: 08/09/15 Status: Ordered spironolactone 25 mg oral tablet 1 tabs, Oral, Daily, # 30 tabs, 0 Refill(s) Start Date: 08/31/13 Status: Ordered Results Microbiology Reports TEST: Affirm Vaginitis Panel STATUS: Auth (Verified) BODY SITE: SOURCE: Cervical COLLECTED DATE/TIME: 09/23/15 4:19 PM Affirm Vaginitis Panel Negative for Trichomonas vaginalis Negative for Shiela species Negative for Gardnerella vaginalis Immunizations Vaccine Date Refusal Reason influenza virus vaccine, live 11/18/12 pneumococcal 23-polyvalent vaccine 11/18/12 Procedures Procedure Date Related Diagnosis Body Site Cardiomyopathy section Pacemaker Social History Social History Type Response Smoking Status Former smoker Assessment and Plan Extracted from: Title: CLEO: ROM Author: Luba Kerns DO Date: 09/23/15 Assessment/Plan 1.Well woman exam with routine gynecological exam Pap and HPV collected. If both negative, repeat cotesting at 2yrs. Mammo to be scheduled at her convenience. She will call [facility] for this. GC/chlamydia and affirm obtained today Healthy diet recommended. Active lifestyle recommended. Ordered: Periodic Comp Preventive Med 40 to 64 years Est 75996 Return to Clinic Referrals to Other Providers Referred by: Luba Kerns DO
--- OUTSIDE RECORDS SUMMARY | 2016-05-24 02:24 | XMS REPORT | Referral Summary ---
Author Author Via LEANNE Blake, [facility], [facility] Organization Via LEANNE Blake, [facility] Address Unknown Phone Unavailable Care Team Providers Care Metal Wire Technician Name Role Phone Itzel Kerns Primary Care Physician [phone] Encounter VC DONNA [id number] Date(s): 05/23/15 - 05/23/15 Via LEANNE Blake, [id number] [place] [address] Discharge Diagnosis: DM2 (diabetes mellitus, type 2) Discharge Diagnosis: Soft tissue mass Discharge Diagnosis: Cough Discharge Diagnosis: Cardiomyopathy Discharge Disposition: 01-Home or Self Care Attending Physician: Luba Kerns DO Admitting Physician: Luba Kerns DO Vital Signs Most recent to 1 oldest [Reference Range]: Temperature Oral 36 degC [35.8-37.3 degC] (05/23/15 4:11 PM) Apical Heart Rate 77 bpm [60-100 bpm] (05/23/15 4:11 PM) Blood Pressure 140/76 mmHg [90-140/60-90 mmHg] (05/23/15 4:11 PM) SpO2 98 % (05/23/15 4:11 PM) Problem List Condition Effective Dates Status [...] wheezing, # 1 Each, 11 Refill(s), Pharmacy: [place] [address] Start Date: 04/06/15 Status: Ordered Aspir-Low mg, Oral, Daily, 0 Refill(s) Start Date: 08/31/13 Status: Ordered candesartan 4 mg oral tablet See Instructions, TAKE ONE TABLET BY MOUTH ONCE DAILY, # 30 tabs, eRx: [place] [address], TAKE ONE TABLET BY MOUTH ONCE DAILY Start Date: 05/23/15 Status: Ordered carvedilol 12.5 mg oral tablet See Instructions, 1/2 tabs mg Oral BID, # 60 tabs, 3 Refill(s), Pharmacy: [place] [address], 1/2 tabs mg Oral BID Start Date: 12/24/14 Status: Ordered citalopram 20 mg oral tablet 40 mg 2 tabs, Oral, Daily, X 30 days, # 60 tabs, 5 Refill(s), Pharmacy: [place] [address], 2 tabs Oral Daily,x30 days Start Date: 05/20/15 Stop Date: 11/16/15 Status: Ordered Crestor 20 mg oral tablet See Instructions, 1 tabs Oral Bedtime (once a day), # 30 tabs, eRx: [place] [address], 1 tabs Oral Bedtime (once a day) Start Date: 05/23/15 Status: Ordered famotidine 20 mg oral tablet 20 mg 1 tabs, Oral, BID, # 60 tabs, 5 Refill(s), Pharmacy: [place] [address] , 1 tabs Oral BID Start Date: 03/03/15 Status: Ordered Flector Patch 1.3% topical film, extended release 1 patches, Topical, BID, as needed for pain, # 60 patches, 1 Refill(s), Pharmacy : [place] [address] Start Date: 01/03/15 Status: Ordered furosemide 20 mg oral tablet See Instructions, 3 tabs mg Oral BID, # 540 Each, 3 Refill(s), Pharmacy: [place] [address], 3 tabs mg Oral BID Start Date: 07/21/14 Status: Ordered glucometer strips glucometer strips, See Instructions, Contour Next strips Test 4x/day dx: uncontrolled DM, # 1 boxes, 11 Refill(s), Pharmacy: [place] [address], Contour Next strips; Test 4x/day; dx: uncontrolled DM Start Date: 08/31/14 Status: Ordered ibuprofen 600 mg oral tablet 600 mg 1 tabs, Oral, TID, # 90 tabs, 0 Refill(s), Pharmacy: [facility], 1 tabs Oral TID Start Date: 01/26/15 Status: Ordered Klor-Con M20 oral tablet, extended release 20 mEq 1 tabs, Oral, BID, # 180 tabs, 3 Refill(s), Pharmacy: [facility], 1 tabs Oral BID Start Date: 07/21/14 Status: Ordered Lantus Solostar Pen 100 units/mL subcutaneous solution 36 units, SubCutaneous, Bedtime (once a day), # 15 Each, 5 Refill(s), Pharmacy: [facility], 36 units SubCutaneous Bedtime (once a day) Start Date: 01/19/15 Status: Ordered metFORMIN 500 mg oral tablet 500 mg 1 tabs, Oral, BID, # 60 tabs, 5 Refill(s), Pharmacy: [facility], 1 tabs Oral BID Start Date: 03/03/15 Status: Ordered NovoLOG FlexPen 100 units/mL subcutaneous solution 12 units, SubCutaneous, TIDAC, # 15 mL, 3 Refill(s), Pharmacy: [facility], 12 units SubCutaneous TIDAC Start Date: 12/31/13 Status: Ordered Relion Pen Neddles 31gx6 mm Relion Pen Neddles 31gx6 mm, See Instructions, [facility] ad directed Dx:250.00, # 1 bottles, 5 Refill(s), Pharmacy: [facility] ad directed; Dx: 250.00 Start [...] smoker Assessment and Plan Extracted from: Title: OV: preop H&P Author: Luba Kerns DO Date: 05/23/15 Assessment/Plan 1.Soft tissue mass scheduled for biopsy by podiatry later this week. OK for surgery Ordered: Office Visit Level 4 Est 79957 Return to Clinic 2.DM2 (diabetes mellitus, type 2) A1c 8.8% 2 mo ago discussed risk of surgical complication and risk of infection post op due to high sugars. f/u next month for diabetesckup. Ordered: Office Visit Level 4 Est 01936 Return to Clinic 3.Cardiomyopathy followed bycardiology s/p pacer asxs currently discussedsurgical risk Ordered: Office Visit Level 4 Est 79372 Return to Clinic 4.Cough d/t drainage restart Flonase f/uif sxsworsen. Ordered: Office Visit Level 4 Est 68846 Return to Clinic Referrals to Other Providers Referred by: Luba Kerns DO
--- OUTSIDE RECORDS SUMMARY | 2016-05-24 02:24 | XMS REPORT | Referral Summary ---
Author Author Via LEANNE [place], [facility], [facility] Organization Via ChristineLEANNE [place], [facility] Address Unknown Phone Unavailable Care Team Providers Care Drill Sharpener Operator Name Role Phone Itzel Kerns Primary Care Physician [phone] Encounter VC Date(s): 12/16/14 - 12/16/14 Via LEANNE Blake, [address] [address] Discharge Diagnosis: Acute URI Discharge Disposition: 01-Home [...] wheezing, # 1 Each, 0 Refill(s), Pharmacy: [facility] Start Date: 12/28/13 Status: Ordered Aspir-Low mg, Oral, Daily, 0 Refill(s) Start Date: 08/31/13 Status: Ordered candesartan 4 mg oral tablet See Instructions, TAKE ONE TABLET BY MOUTH EVERY DAY, # 30 tabs, 5 Refill(s), Pharmacy: [place] [address], TAKE ONE TABLET BY MOUTH EVERY DAY Start Date: 09/16/14 Status: Ordered carvedilol 12.5 mg oral tablet See Instructions, 1/2 tabs mg Oral BID, # 60 tabs, 3 Refill(s), Pharmacy: [place] [address], 1/2 tabs mg Oral BID Start Date: 12/11/13 Status: Ordered ciprofloxacin 500 mg oral tablet 500 mg 1 tabs, Oral, q12hr, X 10 days, # 20 tabs, 0 Refill(s), Pharmacy: [place] [address], 1 tabs Oral q12hr,x10 days Start Date: 12/16/14 Stop Date: 12/26/14 Status: Ordered citalopram 20 mg oral tablet 40 mg 2 tabs, Oral, Daily, X 30 days, # 60 tabs, 5 Refill(s), Pharmacy: [place] [address], 2 tabs Oral Daily,x30 days Start Date: 12/16/14 Stop Date: 06/14/15 Status: Ordered dextromethorphan-guaiFENesin 10 mg-200 mg oral capsule 2 caps, Oral, q4hr, as needed for cough, # 60 caps, 0 Refill(s), Pharmacy: [place] [address] Start Date: 12/16/14 Stop Date: 12/30/14 Status: Ordered famotidine 20 mg oral tablet 20 mg 1 tabs, Oral, BID, # 60 tabs, 3 Refill(s), Pharmacy: [facility] , 1 tabs Oral BID Start Date: 07/21/14 Status: Ordered furosemide 20 mg oral tablet See Instructions, 3 tabs mg Oral BID, # 540 Each, 3 Refill(s), Pharmacy: [facility], 3 tabs mg Oral BID Start Date: 07/21/14 Status: Ordered glucometer strips glucometer strips, See Instructions, Contour Next strips Test 4x/day dx: uncontrolled DM, # 1 boxes, 11 Refill(s), Pharmacy: [facility], Contour Next strips; Test 4x/day; dx: uncontrolled DM Start Date: 08/31/14 Status: Ordered Klor-Con M20 oral tablet, extended release 20 mEq 1 tabs, Oral, BID, # 180 tabs, 3 Refill(s), Pharmacy: [facility], 1 tabs Oral BID Start Date: 07/21/14 Status: Ordered Lantus Solostar Pen 100 units/mL subcutaneous solution 36 units, SubCutaneous, Bedtime (once a day), # 15 Each, 3 Refill(s), Pharmacy: [facility], 36 units SubCutaneous Bedtime (once a day) Start Date: 12/31/13 Status: Ordered metFORMIN 500 mg oral tablet 1 tabs, Oral, BID, # 60 tabs, 5 Refill(s), Pharmacy: [place] [address], 1 tabs Oral BID Start Date: 05/06/14 Status: Ordered NovoLOG FlexPen 100 units/mL subcutaneous solution 12 units, SubCutaneous, TIDAC, # 15 mL, 3 Refill(s), Pharmacy: [place] [address], 12 units SubCutaneous TIDAC Start Date: 12/31/13 Status: Ordered Relion Pen Neddles 31gx6 mm Relion Pen Neddles 31gx6 mm, See Instructions, [facility] ad directed Dx:250.00, # 1 bottles, 5 Refill(s), Pharmacy: [place] [address], [facility] ad directed; Dx: 250.00 Start Date: 09/16/14 Status: Ordered rosuvastatin 20 mg oral tablet 20 mg 1 tabs, Oral, Bedtime (once a day), # 30 tabs, 0 Refill(s), Pharmacy: [place] [address], 1 tabs Oral Bedtime (once a day) Start Date: 11/08/14 Status: Ordered spironolactone 25 mg oral tablet [...] AM) MCV [82.0-99.0 fL] 89.4 fL (12/16/14 AM) MCH [27.0-32.0 pg] 29.7 pg (12/16/14 [...] 3.57 10*3 [0.80-3.30 10*3] *HI* (12/16/14 AM) [place]gard Absolute 0.87 10*3 [0.30-1.00 10*3] (12/16/14 AM) Eos Absolute 0.25 10*3 [0.00-0.50 10*3] (12/16/14 AM) Baso Absolute 0.02 10*3 [0.00-0.20 10*3] (12/16/14 AM) Chemistry Most recent to 1 oldest [Reference Range]: Sodium Lvl [135-144 141 mEq/L mEq/L] (12/16/14 AM) Potassium Lvl 4.6 mEq/L [3.5-5.2 mEq/L] (12/16/14 AM) Chloride [99-111 105 mEq/L mEq/L] (12/16/14 [...] AM) HDL [40-84 mg/dL] 34 mg/dL *LOW* (10/22/15 9:23 AM) LDL [0-130 mg/dL] 67 mg/dL (12/16/14 9:23 AM) VLDL Cholesterol 18 mg/dL [0-28 mg/dL] (12/16/14 9:23 AM) Cardiac Risk 3.5 [0.0-5.0] (12/16/14 9:23 AM) TSH with Reflex Free 0.88 T4 [0.35-4.94] (12/16/14 9:23 AM) Hgb A1c [4.1-5.6 %] 8.5 % *HI* (12/16/14 9:23 AM) eAvg Glucose 197.3 mg/dL (12/16/14 9:23 AM) 1Result Comment: Multiply eGFR results by 1.21 for race. Immunizations Vaccine Date Refusal Reason influenza virus [...] 06/28/2014 Document Reviewed: ExitCare Patient Information 2015 [employer]. This information is not intended to replace [...] w/ Differential Office Visit Level 4 Est 22269 Return to Clinic 2.Acute URI Viral etiology tx symptomatically RX Guaifenesin-dextormethorphan Ordered: Office Visit Level 4 Est 12400 Return to Clinic 3.DM2 (diabetes mellitus, type 2) A1c today She is non-compliantw/ her insulin.We have many discussions about this in the past. Ordered: Comprehensive Metabolic Panel Hemoglobin A1c Office Visit Level 4 Est 12968 Return to Clinic 4.Depression Increase Celexa to 40mg daily. This would be max dose. Discussed window to effectiveness. Ordered: Office Visit Level 4 Est 30236 Return to Clinic TSH with Reflex Free T4 5.HLD (hyperlipidemia) Fasting lipids today She is on Crestor 20mg daily. Ordered: Lipid Panel Return to Clinic 6.Dysuria see #1 Ordered: Return to Clinic Urine Culture Orders: ciprofloxacin, 500 mg 1 tabs, Oral, q12hr, X 10 days, # 20 tabs, 0 Refill(s), Pharmacy: [facility], 1 tabs Oral q12hr,x10 days citalopram, 40 mg 2 tabs, Oral, Daily, X 30 days, # 60 tabs, 5 Refill(s), Pharmacy: [facility], 2 tabs Oral Daily,x30 days dextromethorphan-guaiFENesin, 2 caps, Oral, q4hr, as needed for cough, # 60 caps, 0 Refill(s), Pharmacy: [facility] Referrals to Other Providers Referred by: Luba Kerns DO
--- OUTSIDE RECORDS SUMMARY | 2016-05-24 02:24 | XMS REPORT ---
Author Author Che Ashton Organization [facility] Address [address] [place] [address] Care Team Providers Care Landscape Supervisor Name Role Phone Che Ashton Unavailable [phone] PROBLEMS Type Condition ICD9-CM Code IKA65-OT Code Onset Dates Condition Status SNOMED Code Problem Dyslipidemia E78.5 Active 305587166 Problem Nonischemic cardiomyopathy I42.9 Active 06251887 Problem Hypertension, well controlled I10 Active 54671775 Problem Mild mitral regurgitation I34.0 Active 80783549 Problem Morbid obesity E66.01 Active 799698161 Problem Diabetes mellitus type II, controlled E11.9 Active 662626129 Problem AICD (automatic cardioverter/defibrillator) present Z95.810 Active 650249441 ALLERGIES Unknown Allergies SOCIAL HISTORY No smoking Hx information available PLAN OF CARE VITAL SIGNS MEDICATIONS Medication Instructions Dosage Frequency Start Date End Date Duration Status Furosemide 20 MG Orally once a day 1 tablet 24h 30 days Active Spironolactone 25 MG Orally Once a day 1 tablet 24h Apr, 30 days Active RESULTS No Results PROCEDURES No Known procedures IMMUNIZATIONS No Known Immunizations
--- OUTSIDE RECORDS SUMMARY | 2016-05-24 02:24 | XMS REPORT ---
Author Author Che Ashton Organization [employer] Address Unknown Phone Unavailable Care Team Providers Care Order Schedule Clerk Name Role Phone Che Ashton CP Unavailable Allergies, Adverse Reactions, Alerts Substance Reaction Event Type lisinopril Info Not Available Non Drug Allergy latex Info Not Available Non Drug Allergy amoxicillin Info Not Available Non Drug Allergy Problems Problem Type Condition ICD-9 Code Onset Dates Condition Status Assessment Diabetes Mellitus, Type II, Controlled 250.00 Active Assessment Cardiomyopathy, Nonischemic 425.4 Active Assessment Hypertension 401.9 Active Problem Cardiomyopathy, Nonischemic 425.4 Active Problem Hypertension 401.9 Active Problem Dyslipidemia 272.4 Active Problem Mitral Regurgitation 424.0 Active Problem Morbid obesity 278.01 Active Problem Diabetes Mellitus, Type II, Controlled 250.00 Active Problem S/P AICD V45.02 Active Assessment Dyslipidemia 272.4 Active Assessment Morbid obesity 278.01 Active Assessment Mitral Regurgitation 424.0 Active Assessment S/P AICD V45.02 Active Medications Medication Code System Code Instructions Start Date End Date Status Dosage Aspirin [facility] [address]-93 81 MG Orally Once a day 1 tablet NovoLog Flexpen [facility] [address]-43 100 UNIT/ML Subcutaneous tid 12 units Atacand [facility] [address]-52 4 MG Orally Once a day 1 tablet Furosemide [facility] [address]-67 20 TAKE THREE TABLETS BY MOUTH TWICE DAILY Citalopram Hydrobromide [facility] [address]-35 10 MG Orally Once a day 0.5 tablet Lantus SoloStar [facility] [address]-68 100 UNIT/ML Subcutaneous qd 36 units Carvedilol [facility] [address]-57 12.5 MG Orally Twice a day 1/2 tablets Simvastatin [facility] [address]-63 40 MG Orally Once a day 1 tablet in the evening Spironolactone [facility] 55859146924 25 MG Orally Once a day 1 tablet Metformin ND 0 500 MG Orally bid 1 tablet Klor-Con M20 [facility] [address]-47 20 TAKE ONE TABLET BY MOUTH TWICE DAILY Procedures Procedure Coding System Code Date Office Visit, Karely Pt., Level 4 CPT-4 68429 September 20, 2014 Vital Signs Date/Time: September 20, 2014 BMI 50.29 Index Weight 275 lbs Height 62 in Blood Pressure Diastolic 70 mm Hg Blood Pressure Systolic 110 mm Hg Results No Known Results Summary Purpose [employer] Submission
--- OUTSIDE RECORDS SUMMARY | 2016-05-24 02:24 | XMS REPORT | Referral Summary ---
Author Author [facility], [facility], [facility] Organization [facility], [facility] Address Unknown Phone Unavailable Care Team Providers Care Bessemer Converter Blower Name Role Phone Itzel Kerns Primary Care Physician [phone] Encounter VC Date(s): 06/22/15 - 06/22/15 [facility], [id number] [place] [address] Discharge Diagnosis: Acute pharyngitis Discharge Diagnosis: Hypertension Discharge Diagnosis: Bronchitis Discharge Diagnosis: SHILPA (middle ear effusion) Discharge Disposition: 01-Home or Self Care Attending Physician: Marina Foley APRN Admitting Physician: Marina Foley APRN Vital Signs Most recent to 1 oldest [Reference Range]: Temperature Oral 37.8 degC [35.8-37.3 degC] *HI* (06/22/15 10:10 AM) Peripheral Pulse 85 bpm Rate [60-100 bpm] (06/22/15 10:10 AM) Blood Pressure 138/102 mmHg [90-140/60-90 mmHg] (06/22/15 10:10 AM) SpO2 97 % (06/22/15 10:10 AM) Problem List Condition Effective Dates Status [...] wheezing, # 1 Each, 11 Refill(s), Pharmacy: [facility] [address] Start Date: 04/06/15 Status: Ordered Aspir-Low mg, Oral, Daily, 0 Refill(s) Start Date: 08/31/13 Status: Ordered candesartan 4 mg oral tablet See Instructions, TAKE ONE TABLET BY MOUTH ONCE DAILY, # 30 tabs, eRx: [facility] [address], TAKE ONE TABLET BY MOUTH ONCE DAILY Start Date: 05/23/15 Status: Ordered carvedilol 12.5 mg oral tablet See Instructions, 1/2 tabs mg Oral BID, # 60 tabs, 3 Refill(s), Pharmacy: [facility] [address], 1/2 tabs mg Oral BID Start Date: 12/24/14 Status: Ordered citalopram 20 mg oral tablet 40 mg 2 tabs, Oral, Daily, X 30 days, # 60 tabs, 5 Refill(s), Pharmacy: [facility] [address], 2 tabs Oral Daily,x30 days Start Date: 05/20/15 Stop Date: 11/16/15 Status: Ordered Crestor 20 mg oral tablet See Instructions, 1 tabs Oral Bedtime (once a day), # 30 tabs, eRx: [facility] [address], 1 tabs Oral Bedtime (once a day) Start Date: 05/23/15 Status: Ordered famotidine 20 mg oral tablet 20 mg 1 tabs, Oral, BID, # 60 tabs, 5 Refill(s), Pharmacy: [facility] [address] , 1 tabs Oral BID Start Date: 03/03/15 Status: Ordered Flector Patch 1.3% topical film, extended release 1 patches, Topical, BID, as needed for pain, # 60 patches, 1 Refill(s), Pharmacy : [facility] [address] Start Date: 01/03/15 Status: Ordered furosemide 20 mg oral tablet See Instructions, 3 tabs mg Oral BID, # 540 Each, 3 Refill(s), Pharmacy: [facility] [address], 3 tabs mg Oral BID Start Date: 07/21/14 Status: Ordered glucometer strips glucometer strips, See Instructions, Contour Next strips Test 4x/day dx: uncontrolled DM, # 1 boxes, 11 Refill(s), Pharmacy: [place] [facility] [address], Contour Next strips; Test 4x/day; dx: uncontrolled [...] 5 Refill(s), Pharmacy: [facility], 36 units SubCutaneous Bedtime (once a day) Start Date: 05/30/15 Status: Ordered metFORMIN 500 mg oral tablet 500 mg 1 tabs, Oral, BID, # 60 tabs, 5 Refill(s), Pharmacy: [facility], 1 tabs Oral BID Start Date: 03/03/15 Status: Ordered NovoLOG FlexPen 100 units/mL subcutaneous solution 12 units, SubCutaneous, TIDAC, # 15 mL, 5 Refill(s), Pharmacy: [facility], 12 units SubCutaneous TIDAC Start Date: 05/30/15 Status: Ordered predniSONE 20 mg oral tablet 20 mg 1 tabs, Oral, BID, X 3 days, # 6 tabs, 0 Refill(s), Pharmacy: [facility], 1 tabs Oral BID,x3 days Start Date: 06/22/15 Stop Date: 06/25/15 Status: Ordered Relion Pen Neddles 31gx6 mm Relion Pen Neddles 31gx6 mm, See Instructions, [facility] ad directed Dx:250.00, # 1 bottles, 5 Refill(s), Pharmacy: [facility], [facility] [place] ad directed; Dx: 250.00 Start Date: 09/16/14 [...] Assessment and Plan Extracted from: Title: OV: brponchitis, ear Author: Marina Foley APRN Date: 06/22/15 effusions , pharyngitis Assessment/Plan 1.Bronchitis RX z-pack RX-prednisone 20 mg po bid x 3 days albuterol inhaler 2 puffs q 4 hr prn. pt has inhaler at home Ordered: Office Visit Level 3 Est 60960 2.Acute pharyngitis, Sore throat POC strep screen was negative warm fluids, may use otc Cepacol lozenges prn Ordered: Office Visit Level 3 Est 76723 3.Hypertension Pt instructed to go home and take Bp medications and to notify clinic if symports worsen goal of 140/90 Ordered: Office Visit Level 3 Est 08582 4.SHILPA (middle ear effusion) Flonase nasal spray 1 spray to each nare bid prn if dizziness worsens rtc Orders: predniSONE, 20 mg 1 tabs, Oral, BID, X 3 days, # 6 tabs, 0 Refill(s), Pharmacy: [facility], 1 tabs Oral BID,x3 days
--- OUTSIDE RECORDS SUMMARY | 2016-05-24 02:25 | XMS REPORT | Referral Summary ---
Author Author [facility], [facility], [facility] Organization [facility], [facility] Address Unknown Phone Unavailable Care Team Providers Care Nutrition Program Instructor Name Role Phone Itzel Kerns Primary Care Physician [phone] Encounter VC Date(s): 01/03/15 - 01/03/15 [facility], [address] [address] Discharge Diagnosis: Right shoulder pain Discharge Diagnosis: Pain in lower back Discharge Disposition: 01-Home or Self Care Attending Physician: Luba Kerns DO Admitting Physician: Luba Kerns DO Vital Signs Most recent to 1 oldest [Reference Range]: Apical Heart Rate 66 bpm [60-100 bpm] (01/03/15 1:55 PM) Blood Pressure 138/88 mmHg [90-140/60-90 mmHg] (01/03/15 1:55 PM) SpO2 98 % (01/03/15 1:55 PM) Problem List Condition Effective Dates Status [...] wheezing, # 1 Each, 0 Refill(s), Pharmacy: [facility] Start Date: 12/28/13 Status: Ordered Aspir-Low mg, Oral, Daily, 0 Refill(s) Start Date: 08/31/13 Status: Ordered candesartan 4 mg oral tablet See Instructions, TAKE ONE TABLET BY MOUTH EVERY DAY, # 30 tabs, 5 Refill(s), Pharmacy: [place] [address], TAKE ONE TABLET BY MOUTH EVERY DAY Start Date: 09/16/14 Status: Ordered carvedilol 12.5 mg oral tablet See Instructions, 1/2 tabs mg Oral BID, # 60 tabs, 3 Refill(s), Pharmacy: [facility] [address], 1/2 tabs mg Oral BID Start Date: 12/24/14 Status: Ordered citalopram 20 mg oral tablet 40 mg 2 tabs, Oral, Daily, X 30 days, # 60 tabs, 5 Refill(s), Pharmacy: [facility] [address], 2 tabs Oral Daily,x30 days Start Date: 12/16/14 Stop Date: 06/14/15 Status: Ordered famotidine 20 mg oral tablet 20 mg 1 tabs, Oral, BID, # 60 tabs, 3 Refill(s), Pharmacy: [place] [address] , 1 tabs Oral BID Start Date: 07/21/14 Status: Ordered Flector Patch 1.3% topical film, extended release 1 patches, Topical, BID, as needed for pain, # 60 patches, 1 Refill(s), Pharmacy : [place] [address] Start Date: 01/03/15 Status: Ordered furosemide 20 mg oral tablet See Instructions, 3 tabs mg Oral BID, # 540 Each, 3 Refill(s), Pharmacy: [facility] [address], 3 tabs mg Oral BID Start Date: 07/21/14 Status: Ordered glucometer strips glucometer strips, See Instructions, Contour Next strips Test 4x/day dx: uncontrolled DM, # 1 boxes, 11 Refill(s), Pharmacy: [place] [address], Contour Next strips; Test 4x/day; dx: uncontrolled DM Start Date: 08/31/14 Status: Ordered Klor-Con M20 oral tablet, extended release 20 mEq 1 tabs, Oral, BID, # 180 tabs, 3 Refill(s), Pharmacy: [place] [address], 1 tabs Oral BID Start Date: 07/21/14 Status: Ordered Lantus Solostar Pen 100 units/mL subcutaneous solution 36 units, SubCutaneous, Bedtime (once a day), # 15 Each, 3 Refill(s), Pharmacy: [facility], 36 units SubCutaneous Bedtime (once a day) Start Date: 12/31/13 Status: Ordered metFORMIN 500 mg oral tablet 1 tabs, Oral, BID, # 60 tabs, 5 Refill(s), Pharmacy: [facility], 1 tabs Oral BID Start Date: 05/06/14 Status: Ordered NovoLOG FlexPen 100 units/mL subcutaneous solution 12 units, SubCutaneous, TIDAC, # 15 mL, 3 Refill(s), Pharmacy: [facility], 12 units SubCutaneous TIDAC Start Date: 12/31/13 Status: Ordered Relion Pen Neddles 31gx6 mm Relion Pen Neddles 31gx6 mm, See Instructions, [facility] ad directed Dx:250.00, # 1 bottles, 5 Refill(s), Pharmacy: [place] [address], [facility] [place] ad directed; Dx: 250.00 Start Date: 09/16/14 Status: Ordered rosuvastatin 20 mg oral tablet 20 mg 1 tabs, Oral, Bedtime (once a day), # 30 tabs, 0 Refill(s), Pharmacy: [facility], 1 tabs Oral Bedtime (once a day) [...] Author: Luba Kerns DO Date: Family Medicine Back Pain, Adult Low back pain is very common. About 1 in 5 people have back pain.The cause of low back pain is rarely dangerous. The pain often gets better over time.About half of people with a sudden onset of back pain feel better in just 2 weeks. About 8 in 10 people feel better by 6 weeks. CAUSES Some common causes of back pain include: Strain of the muscles or ligaments supporting the spine. Wear and tear (degeneration) of the spinal discs. Arthritis. Direct injury to the back. DIAGNOSIS Most of the time, the direct cause of low back pain is not known.However, back pain can be treated effectively even when the exact cause of the pain is unknown.Answering your caregiver's questions about your overall health and symptoms is one of the most accurate ways to make sure the cause of your pain is not dangerous. If your caregiver needs more information, he or she may order lab work or imaging tests (X-rays or MRIs).However, even if imaging tests show changes in your back, this usually does not require surgery. HOME CARE INSTRUCTIONS For many people, back pain returns.Since low back pain is rarely dangerous, it is often a condition that people can learn to manageon their own. Remain active. It is stressful on the back to sit or insurance account executive one place. Do not sit, drive, or insurance account executive one place for more than 30 minutes at a time. Take short walks on level surfaces as soon as pain allows.Try to increase the length of time you walk each day. Do not stay in bed.Resting more than 1 or 2 days can delay your recovery. Do not avoid exercise or work.Your body is made to move.It is not dangerous to be active, even though your back may hurt.Your back will likely heal faster if you return to being active before your pain is gone. Pay attention to your body when you bend and lift. Many people have less discomfortwhen lifting if they bend their knees, keep the load close to their bodies,and avoid twisting. Often, the most comfortable positions are those that put less stress on your recovering back. Find a comfortable position to sleep. Use a firm mattress and lie on your side with your knees slightly bent. If you lie on your back, put a pillow under your knees. Only take xllm-xpk-yckoojc or prescription medicines as directed by your caregiver. Jlfn-usl-iympupa medicines to reduce pain and inflammation are often the most helpful.Your caregiver may prescribe muscle relaxant drugs.These medicines help dull your pain so you can more quickly return to your normal activities and healthy exercise. Put ice on the injured area. Put ice in a plastic bag. Place a towel between your skin and the bag. Leave the ice on for 15-20 minutes, 03-04 times a day for the first 2 to 3 days. After that, ice and heat may be alternated to reduce pain and spasms. Ask your caregiver about trying back exercises and gentle massage. This may be of some benefit. Avoid feeling anxious or stressed.Stress increases muscle tension and can worsen back pain.It is important to recognize when you are anxious or stressed and learn ways to manage it.Exercise is a great option. SEEK MEDICAL CARE IF: You have pain that is not relieved with rest or medicine. You have pain that does not improve in 1 week. You have new symptoms. You are generally not feeling well. SEEK IMMEDIATE MEDICAL CARE IF: You have pain that radiates from your back into your legs. You develop new bowel or bladder control problems. You have unusual weakness or numbness in your arms or legs. You develop nausea or vomiting. You develop abdominal pain. You feel faint. Document Released: 02/11/2006 Document Revised: 08/12/2012 Document Reviewed: [facility] [place] Patient Information 2015 [employer]. This information is not intended to replace advice given to you by your health care provider. Make sure you discuss any questions you have with your health care provider. No follow up information was provided. Extracted from: Title: OV: shoulder pain, LBP Author: Luba Kerns DO Date: 01/03/15 Assessment/Plan 1.Right shoulder pain Continue Flector patch PT to be ordered at [facility] Ordered: Office Visit Level 3 Est 59718 Return to Clinic 2.Pain in lower back No radicular signs or red flags today. Try Flector patchhere as well OK for chiropractor if desired PT to be ordered at [facility] Handout for low back pain stretches provided. f/u in 3-4 weeks if still symptomatic Ordered: Office Visit Level 3 Est 85407 Return to Clinic Orders: diclofenac topical, 1 patches, Topical, BID, as needed for pain, # 60 patches, 1 Refill(s), Pharmacy: [facility] Referrals to Other Providers Referred by: Luba Kerns DO
--- OUTSIDE RECORDS SUMMARY | 2016-05-24 02:25 | XMS REPORT | Referral Summary ---
Author Author [facility], [facility], [facility] Organization [facility], [facility] Address Unknown Phone Unavailable Care Team Providers Care Communications Technologist Name Role Phone Itzel Kerns Primary Care Physician [phone] Encounter VC Date(s): 10/03/15 - 10/03/15 [facility], [facility], [address] [address]- [place] Discharge Diagnosis: Broken tooth Discharge Diagnosis: Right ear pain Discharge Disposition: 01-Home or Self Care Attending Physician: Luba Kerns DO Admitting Physician: Luba Kerns DO Vital Signs Most recent to 1 oldest [Reference Range]: Apical Heart Rate 89 bpm [60-100 bpm] (10/03/15 11:00 AM) Blood Pressure 140/80 mmHg [90-140/60-90 mmHg] (10/03/15 11:00 AM) SpO2 98 % (10/03/15 11:00 AM) Problem List Condition Effective Dates Status [...] wheezing, # 1 Each, 11 Refill(s), Pharmacy: [facility] Start Date: 04/06/15 Status: Ordered Aspir-Low mg, Oral, Daily, 0 Refill(s) Start Date: 7/7/14 Status: Ordered candesartan 4 mg oral tablet See Instructions, TAKE ONE TABLET BY MOUTH ONCE DAILY, # 30 tabs, eRx: [facility], TAKE ONE TABLET BY MOUTH ONCE DAILY Start Date: 08/09/15 Status: Ordered carvedilol 12.5 mg oral tablet See Instructions, 1/2 tabs mg Oral BID, # 60 tabs, 3 Refill(s), Pharmacy: [place] [address], 1/2 tabs mg Oral BID Start Date: 12/24/14 Status: Ordered citalopram 20 mg oral tablet 40 mg 2 tabs, Oral, Daily, X 30 days, # 60 tabs, 5 Refill(s), Pharmacy: [place] [address], 2 tabs Oral Daily,x30 days Start Date: 05/20/15 Stop Date: 11/16/15 Status: Ordered Crestor 20 mg oral tablet See Instructions, TAKE ONE TABLET BY MOUTH ONCE DAILY AT BEDTIME, # 30 tabs, eRx : [place] [address], TAKE ONE TABLET BY MOUTH ONCE DAILY AT BEDTIME Start Date: 08/09/15 Status: Ordered famotidine 20 mg oral tablet 20 mg 1 tabs, Oral, BID, # 60 tabs, 5 Refill(s), Pharmacy: [place] [address] , 1 tabs Oral BID Start Date: 03/03/15 Status: Ordered Flector Patch 1.3% topical film, extended release 1 patches, Topical, BID, as needed for pain, # 60 patches, 1 Refill(s), Pharmacy : [place] [address] Start Date: 01/03/15 Status: Ordered furosemide 20 mg oral tablet See Instructions, TAKE THREE TABLETS BY MOUTH TWICE DAILY, # 540 tabs, eRx: [place] [address], TAKE THREE TABLETS BY MOUTH TWICE DAILY Start Date: 09/14/15 Status: Ordered glucometer strips glucometer strips, See Instructions, Contour Next strips Test 4x/day dx: uncontrolled DM, # 1 boxes, 11 Refill(s), Pharmacy: [place] [address], Contour Next strips; Test 4x/day; dx: uncontrolled DM Start Date: 08/31/14 Status: Ordered ibuprofen 600 mg oral tablet 600 mg 1 tabs, Oral, TID, # 90 tabs, 0 Refill(s), Pharmacy: [place] [address], 1 tabs Oral TID Start Date: 01/26/15 Status: Ordered Klor-Con M20 oral tablet, extended release 20 mEq 1 tabs, Oral, BID, # 180 tabs, 0 Refill(s), Pharmacy: [facility], 1 tabs Oral BID Start Date: 08/11/15 Status: Ordered Lantus Solostar Pen 100 units/mL subcutaneous solution 36 units, SubCutaneous, Bedtime (once a day), # 15 Each, 5 Refill(s), Pharmacy: [facility], 36 units SubCutaneous Bedtime (once a day) Start Date: 05/30/15 Status: Ordered metFORMIN 500 mg oral tablet 500 mg 1 tabs, Oral, BID, # 60 tabs, 5 Refill(s), Pharmacy: [facility], 1 tabs Oral BID Start Date: 03/03/15 Status: Ordered NovoLOG FlexPen 100 units/mL subcutaneous solution 12 units, SubCutaneous, TIDAC, # 15 mL, 5 Refill(s), Pharmacy: [facility], 12 units SubCutaneous TIDAC Start Date: 05/30/15 Status: Ordered Relion Pen Neddles 31gx6 mm Relion Pen Neddles 31gx6 mm, See Instructions, [facility] ad directed Dx:250.00, # 1 bottles, 5 Refill(s), Pharmacy: [facility], [facility] ad directed; Dx: 250.00 Start Date: 09/16/14 Status: Ordered RELION PEN NEEDLES [id number] MIS See Instructions, USE DIRECTED, # 50 unknown unit, eRx: [facility] , USE DIRECTED Start Date: [...] Assessment and Plan Extracted from: Title: OV: tooth/ear pain Author: Luba Kerns DO Date: 10/03/15 Assessment/Plan 1.Right ear pain ear is fine. no indication for antibiotic pills or drops currently Ordered: Office Visit Level 3 Est 62466 Return to Clinic 2.Broken tooth recommend she follow the dentist recommendations for treatment. pain meds can come from dentist Ordered: Office Visit Level 3 Est 07238 Return to Clinic Referrals to Other Providers Referred by: Luba Kerns DO
--- OUTSIDE RECORDS SUMMARY | 2016-05-24 02:25 | XMS REPORT | Referral Summary ---
Author Author Via LEANNE Blake, [facility], [facility] Organization Via LEANNE Blake, [facility] Address Unknown Phone Unavailable Care Team Providers Care Pest Control Pilot Name Role Phone Itzel Kerns Primary Care Physician [phone] Encounter VC Date(s): 09/07/15 - 09/07/15 Via LEANNE Blake, [id number] [place] [address] Discharge Diagnosis: Vaginal yeast infection Discharge Diagnosis: Mild HTN Discharge Diagnosis: DM2 (diabetes mellitus, type 2) Discharge Disposition: 01-Home or Self Care Attending Physician: Luba Kerns DO Admitting Physician: Luba Kerns DO Vital Signs Most recent to 1 oldest [Reference Range]: Apical Heart Rate 88 bpm [60-100 bpm] (09/07/15 1:45 PM) Blood Pressure 130/90 mmHg [90-140/60-90 mmHg] (09/07/15 1:45 PM) SpO2 97 % (09/07/15 1:45 PM) Problem List Condition Effective Dates Status [...] wheezing, # 1 Each, 11 Refill(s), Pharmacy: [facility] Start Date: 04/06/15 Status: Ordered Aspir-Low mg, Oral, Daily, 0 Refill(s) Start Date: 08/31/13 Status: Ordered candesartan 4 mg oral tablet See Instructions, TAKE ONE TABLET BY MOUTH ONCE DAILY, # 30 tabs, eRx: [facility], TAKE ONE TABLET BY MOUTH ONCE DAILY Start Date: 08/09/15 Status: Ordered carvedilol 12.5 mg oral tablet See Instructions, 1/2 tabs mg Oral BID, # 60 tabs, 3 Refill(s), Pharmacy: [place] [address], 1/2 tabs mg Oral BID Start Date: 12/24/14 Status: Ordered citalopram 20 mg oral tablet 40 mg 2 tabs, Oral, Daily, X 30 days, # 60 tabs, 5 Refill(s), Pharmacy: [place] [address], 2 tabs Oral Daily,x30 days Start Date: 05/20/15 Stop Date: 11/16/15 Status: Ordered Crestor 20 mg oral tablet See Instructions, TAKE ONE TABLET BY MOUTH ONCE DAILY AT BEDTIME, # 30 tabs, eRx : [place] [address], TAKE ONE TABLET BY MOUTH ONCE DAILY AT BEDTIME Start Date: 08/09/15 Status: Ordered Crestor 20 mg oral tablet See Instructions, 1 tabs Oral Bedtime (once a day), # 30 tabs, eRx: [place] [address], 1 tabs Oral Bedtime (once a day) Start Date: 05/23/15 Status: Ordered famotidine 20 mg oral tablet 20 mg 1 tabs, Oral, BID, # 60 tabs, 5 Refill(s), Pharmacy: [place] [address] , 1 tabs Oral BID Start Date: 03/03/15 Status: Ordered Flector Patch 1.3% topical film, extended release 1 patches, Topical, BID, as needed for pain, # 60 patches, 1 Refill(s), Pharmacy : [place] [address] Start Date: 01/03/15 Status: Ordered furosemide 20 mg oral tablet See Instructions, 3 tabs mg Oral BID, # 540 Each, 3 Refill(s), Pharmacy: [place] [address], 3 tabs mg Oral BID Start Date: 07/21/14 Status: Ordered glucometer strips glucometer strips, See Instructions, Contour Next strips Test 4x/day dx: uncontrolled DM, # 1 boxes, 11 Refill(s), Pharmacy: [place] [address], Contour Next strips; Test 4x/day; dx: uncontrolled DM Start Date: 08/31/14 Status: Ordered ibuprofen 600 mg oral tablet 600 mg 1 tabs, Oral, TID, # 90 tabs, 0 Refill(s), Pharmacy: [place] [address], 1 tabs Oral TID Start Date: 01/26/15 Status: Ordered Klor-Con M20 oral tablet, extended release 20 mEq 1 tabs, Oral, BID, # 180 tabs, 0 Refill(s), Pharmacy: [place] [facility] [address], 1 tabs Oral BID Start Date: 08/11/15 Status: Ordered Lantus Solostar Pen 100 units/mL subcutaneous solution 36 units, SubCutaneous, Bedtime (once a day), # 15 Each, 5 Refill(s), Pharmacy: [place] [address], 36 units SubCutaneous Bedtime (once a day) Start Date: 05/30/15 Status: Ordered metFORMIN 500 mg oral tablet 500 mg 1 tabs, Oral, BID, # 60 tabs, 5 Refill(s), Pharmacy: [place] [address], 1 tabs Oral BID Start Date: 03/03/15 Status: Ordered NovoLOG FlexPen 100 units/mL subcutaneous solution 12 units, SubCutaneous, TIDAC, # 15 mL, 5 Refill(s), Pharmacy: [place] [address], 12 units SubCutaneous TIDAC Start Date: 05/30/15 Status: Ordered Relion Pen Neddles 31gx6 mm Relion Pen Neddles 31gx6 mm, See Instructions, [facility] ad directed Dx:250.00, # 1 bottles, 5 Refill(s), Pharmacy: [place] [address], [facility] ad directed; Dx: 250.00 Start Date: 09/16/14 Status: Ordered RELION PEN NEEDLES [id number] MIS See Instructions, USE DIRECTED, # 50 unknown unit, eRx: [place] [address] , USE DIRECTED Start Date: 08/09/15 Status: Ordered spironolactone 25 mg oral tablet 1 tabs, Oral, Daily, # 30 tabs, 0 Refill(s) Start Date: 08/31/13 Status: Ordered Results Hematology Most recent to 1 oldest [Reference Range]: WBC [4.8-10.8 12.8 10*3/uL 10*3/uL] *HI* (09/07/15 2:15 PM) RBC [4.00-5.20] 5.31 *HI* (09/07/15 2:15 PM) Hgb [12.0-16.0 15.3 gm/dL gm/dL] (09/07/15 2:15 PM) Hct [37.0-47.0 %] 46.9 % (09/07/15 2:15 PM) MCV [82.0-99.0 fL] 88.3 fL (09/07/15 2:15 PM) MCH [27.0-32.0 pg] 28.8 pg (09/07/15 2:15 PM) MCHC [32.0-36.0 32.6 gm/dL gm/dL] (09/07/15 2:15 PM) RDW [11.5-14.5 %] 14.6 % *HI* (09/07/15 2:15 PM) Platelet [150-400 333 10*3/uL 10*3/uL] (09/07/15 2:15 PM) MPV [8.8-14.8 fL] 11.0 fL (09/07/15 2:15 PM) Chemistry Most recent to 1 oldest [Reference Range]: Sodium Lvl [135-144 142 mEq/L mEq/L] (09/07/15 2:15 PM) Potassium Lvl 4.2 mEq/L [3.5-5.2 mEq/L] (09/07/15 2:15 PM) Chloride [99-111 102 mEq/L mEq/L] (09/07/15 2:15 PM) CO2 [22-31 mEq/L] 28 mEq/L (09/07/15 2:15 PM) AGAP [3-20] 12 (09/07/15 2:15 PM) BUN [7-19 mg/dL] 11 mg/dL (09/07/15 2:15 PM) Glucose Lvl [70-99 356 mg/dL mg/dL] *HI* (09/07/15 2:15 PM) Creatinine Lvl 0.76 mg/dL [0.57-1.11 mg/dL] (09/07/15 2:15 PM) eGFR [>60 mL/min] >60 mL/min 1 (09/07/15 2:15 PM) Calcium Lvl 9.5 mg/dL [8.9-10.5 mg/dL] (09/07/15 2:15 PM) Albumin Lvl [3.5-5.0 4.4 gm/dL gm/dL] (09/07/15 2:15 PM) Total Protein 7.0 gm/dL 2 [6.1-7.7 gm/dL] (09/07/15 2:15 PM) Globulin [1.8-4.0 2.6 gm/dL gm/dL] (09/07/15 2:15 PM) ALT [0-55 U/L] 14 U/L (09/07/15 2:15 PM) AST [5-34 U/L] 15 U/L (09/07/15 2:15 PM) Alk Phos [40-150 116 U/L U/L] (09/07/15 2:15 PM) Bili Total [0.2-1.2 0.7 mg/dL mg/dL] (09/07/15 2:15 PM) Hgb A1c [4.1-5.6 %] 11.1 % *HI* (09/07/15 2:15 PM) eAvg Glucose 271.9 mg/dL (09/07/15 2:15 PM) 1Result Comment: Multiply eGFR results by 1.21 for race. 2Result Comment: Please note new reference range for adult Protein. Immunizations Vaccine Date Refusal Reason influenza virus vaccine, live 11/18/12 pneumococcal 23-polyvalent vaccine 11/18/12 Procedures Procedure Date Related Diagnosis Body Site Cardiomyopathy section Pacemaker Social History Social History Type Response Smoking Status Former smoker Assessment and Plan Extracted from: Title: OV: DM, yeast Author: Luba Kerns DO Date: 09/07/15 Assessment/Plan 1.DM2 (diabetes mellitus, type 2) a1c today Expect this to be high as she is noncompliant w/ insulin This s probably why she keeps getting yeast infections Ordered: Office Visit Level 4 Est 70675 Return to Clinic 2.Vaginal yeast infection Diflucan 150mg po x 1 if still symptomatic, will need to do swab. She is on menses currently. Ordered: Office Visit Level 4 Est 50824 Return to Clinic 3.Mild HTN BP stable. Continue current meds. Concerned for her dose of Lasix. Will check creatinine today Ordered: Office Visit Level 4 Est 38016 Return to Clinic Referrals to Other Providers Referred by: Luba Kerns DO
--- OUTSIDE RECORDS SUMMARY | 2016-05-24 02:25 | XMS REPORT ---
Author Author Che Ashton Organization [facility] Address [address] [place] [address] Care Team Providers Care Payable Processor Name Role Phone Che Ashton Unavailable [phone] PROBLEMS Type Condition ICD9-CM Code YOU61-CR Code Onset Dates Condition Status SNOMED Code Problem Dyslipidemia E78.5 Active 942251970 Problem Dizziness R42 Active 425146200 Problem Nonischemic cardiomyopathy I42.9 Active 95176978 Problem Hypertension, well controlled I10 Active 27991190 Problem Mild mitral regurgitation I34.0 Active 55396906 Problem Morbid obesity E66.01 Active 018226303 Problem Diabetes mellitus type II, controlled E11.9 Active 893675688 Problem AICD (automatic cardioverter/defibrillator) present Z95.810 Active 878138161 ALLERGIES Unknown Allergies SOCIAL HISTORY No smoking Hx information available PLAN OF CARE VITAL SIGNS MEDICATIONS Medication Instructions Dosage Frequency Start Date End Date Duration Status Spironolactone 25 MG Orally Once a day 1 tablet 24h Apr, 90 days Active Furosemide 20 MG Orally once a day 1 tablet 24h 90 days Active RESULTS No Results PROCEDURES No Known procedures IMMUNIZATIONS No Known Immunizations
--- OUTSIDE RECORDS SUMMARY | 2016-05-24 02:25 | XMS REPORT | Referral Summary ---
Author Author Via LEANNE Blake, [facility], [facility] Organization Via LEANNE Blake, [facility] Address Unknown Phone Unavailable Care Team Providers Care Airdrop Systems Technician Name Role Phone Itzel Kerns Primary Care Physician [phone] Encounter VC DONNA [id number] Date(s): 04/18/16 - 04/18/16 Via LAENNE Blake, [id number] [place] [address] Discharge Diagnosis: Acute URI Discharge Disposition: 01-Home or Self Care Attending Physician: Luba Kerns DO Admitting Physician: Luba Kerns DO Vital Signs Most recent to 1 oldest [Reference Range]: Temperature Oral 37.6 degC [35.8-37.3 degC] *HI* (04/18/16 11:23 AM) Peripheral Pulse 83 bpm Rate [60-100 bpm] (04/18/16 11:23 AM) Blood Pressure 138/82 mmHg [90-140/60-90 mmHg] (04/18/16 11:23 AM) SpO2 96 % (04/18/16 11:23 AM) Problem List Condition Effective Dates Status Health Status Informant Cardiomyopathy(Confi Active rmed) CCF - Congestive Active cardiac failure unspec(Confirmed) Diabetes(Confirmed) Resolved DM2 (diabetes Active mellitus, type 2)(Confirmed) HTN(Confirmed) Active Hyperlipidemia(Confi Active rmed) Hepatitis/jaudice(Co < 14 Resolved nfirmed) Mitral Active regurgitation(Confir med) Obesity Active unspec(Confirmed) Allergies, Adverse Reactions, Alerts Substance Reaction Severity Status amoxicillin Active Latex1 Active lisinopril Active 1RASH Medications acetaminophen 0 Refill(s) Start Date: 04/18/16 Status: Ordered albuterol CFC free 90 mcg/inh inhalation aerosol 2 puffs, Inhalation, QID, as needed for wheezing, # 1 Each, 11 Refill(s), Pharmacy: [place] [address] Start Date: 04/06/15 Status: Ordered Aspir-Low mg, Oral, Daily, 0 Refill(s) Start Date: 08/31/13 Status: Ordered candesartan 4 mg oral tablet See Instructions, TAKE ONE TABLET BY MOUTH ONCE DAILY, # 30 tabs, 2 Refill(s), eRx: [place] [address], TAKE ONE TABLET BY MOUTH ONCE DAILY Start Date: 12/19/15 Status: Ordered carvedilol 12.5 mg oral tablet See Instructions, 1/2 tabs mg Oral BID, # 90 tabs, 1 Refill(s), Pharmacy: [place] [address], 1/2 tabs mg Oral BID Start Date: 10/20/15 Status: Ordered famotidine 20 mg oral tablet 20 mg 1 tabs, Oral, BID, # 180 tabs, 1 Refill(s), Pharmacy: [place] [address], 1 tabs Oral BID Start Date: 10/20/15 Status: Ordered Flector Patch 1.3% topical film, extended release 1 patches, Topical, BID, as needed for pain, # 60 patches, 1 Refill(s), Pharmacy : [place] [address] Start Date: 04/04/16 Status: Ordered furosemide 20 mg oral tablet See Instructions, TAKE THREE TABLETS BY MOUTH TWICE DAILY, # 540 tabs, eRx: [place] [address], TAKE THREE TABLETS BY MOUTH TWICE DAILY Start Date: 09/14/15 Status: Ordered glucometer strips glucometer strips, See Instructions, Contour Next strips Test 4x/day dx: uncontrolled DM, # 1 boxes, 11 Refill(s), Pharmacy: [place] [address], Contour Next strips; Test 4x/day; dx: uncontrolled DM Start Date: 08/31/14 Status: Ordered ibuprofen 600 mg oral tablet 600 mg 1 tabs, Oral, TID, # 90 tabs, 0 Refill(s), Pharmacy: [place] [address], 1 tabs Oral TID Start Date: 01/26/15 Status: Ordered Klor-Con M20 oral tablet, extended release 20 mEq 1 tabs, Oral, BID, # 180 tabs, 1 Refill(s), Pharmacy: [facility] [place] [address], 1 tabs Oral BID Start Date: 04/05/16 Status: Ordered Lantus Solostar Pen 100 units/mL subcutaneous solution See Instructions, INJECT 36 UNITS SUBCUTANEOUS ONCE A DAY AT BEDTIME., # 15 unknown unit, eRx: [place] [address] Start Date: 04/18/16 Status: Ordered Lidocaine Viscous 2% mucous membrane solution See Instructions, as needed for mouth sore pain, 5-10 mL Topical QIDPCHS, # 100 mL, 0 Refill(s), Pharmacy: [facility] [place] [address] Start Date: 04/18/16 Stop Date: 04/25/16 Status: Ordered metFORMIN 500 mg oral tablet 500 mg 1 tabs, Oral, BID, # 180 tabs, 1 Refill(s), Pharmacy: [facility] [place] [address], 1 tabs Oral BID Start Date: 10/20/15 Status: Ordered NovoLOG FlexPen 100 units/mL subcutaneous solution 12 units, SubCutaneous, TIDAC, # 15 mL, 5 Refill(s), Pharmacy: [place] [address], 12 units SubCutaneous TIDAC Start Date: 05/30/15 Status: Ordered Relion Pen Neddles 31gx6 mm Relion Pen Neddles 31gx6 mm, See Instructions, [facility] ad directed Dx:250.00, # 1 bottles, 5 Refill(s), Pharmacy: [place] [address], [facility] ad directed; Dx: 250.00 Start Date: 09/16/14 Status: Ordered RELION PEN NEEDLES [id number] MIS See Instructions, USE DIRECTED, # 50 unknown unit, eRx: [place] [address] , USE DIRECTED Start Date: 08/09/15 Status: Ordered rosuvastatin 20 mg oral tablet See Instructions, TAKE ONE TABLET BY MOUTH ONCE DAILY AT BEDTIME, # 30 tabs, eRx : [place] [address], TAKE ONE TABLET BY MOUTH ONCE DAILY AT BEDTIME Start Date: 10/21/15 Status: Ordered spironolactone 25 mg oral tablet 1 tabs, Oral, Daily, # 30 tabs, 0 Refill(s) Start Date: 08/31/13 Status: Ordered Results Microbiology Reports TEST: Rapid Strep Group A STATUS: Auth (Verified) BODY SITE: SOURCE: Throat COLLECTED DATE/TIME: 04/18/16 11:53 AM Rapid Strep Group A Negative Immunizations Given and Recorded Vaccine Date Status Refusal Reason influenza virus vaccine, live 11/18/12 Given pneumococcal 13-valent conjugate vaccine1 11/18/12 Given pneumococcal 23-polyvalent vaccine 11/18/12 Given 1Result Comment: [11/02/2014 Uncharted] Uploaded in Error - CC Procedures Procedure Date Related Diagnosis Body Site Cardiomyopathy section Pacemaker Social History Social History Type Response Smoking Status Former smoker Assessment and Plan Extracted from: Title: OV: pharyngitis Author: Luba Krens DO Date: 04/18/16 Assessment/Plan 1.Sore throat rapid strep negative will send for culture Viscous lidocaine to swish/spit for pain control Continue Tylenol/ibuprofen prn. OTC treatments okay as well f/u prn Ordered: Group A Strep Culture Office Visit Level 3 Est 06069 2.Acute URI viral etiology Symptomatic care OTC f/u prn Ordered: Office Visit Level 3 Est 66972
--- OUTSIDE RECORDS SUMMARY | 2016-05-24 02:25 | XMS REPORT | Referral Summary ---
Author Organization Unknown Address Unknown Phone Unavailable Care Team Providers Care Flash Designer Name Role Phone Itzel Kerns Primary Care Physician [phone] Encounter VC Date(s): 06/18/14 - 06/18/14 Via LEANNE Blake, [facility], Family Medicine [address] [place] [id number] [place] [address] Discharge Diagnosis: Yeast vaginitis Discharge Diagnosis: Allergic rhinitis Discharge Disposition: Home or Self Care Attending Physician: Luba Kerns DO Admitting Physician: Luba Kerns DO Vital Signs Most recent to 1 oldest [Reference Range]: Temperature Oral 36.9 degC [35.8-37.3 degC] (06/18/14 4:10 PM) Apical Heart Rate 73 bpm [60-100 bpm] (06/18/14 4:10 PM) Blood Pressure 118/80 mmHg [90-140/60-90 mmHg] (06/18/14 4:10 PM) Most recent to 1 oldest [Reference Range]: SpO2 97 % (06/18/14 4:10 PM) Problem List Condition Effective Dates Status [...] wheezing, # 1 Each, 0 Refill(s), Pharmacy: [facility] Start Date: 12/28/13 Status: Ordered Aspir-Low mg, Oral, Daily, 0 Refill(s) Start Date: 08/31/13 Status: Ordered azithromycin 250 mg oral tablet 1 packets, Oral, Once, as directed on package labeling, # 6 tabs, 0 Refill(s), Pharmacy: [facility], 1 packets Oral Once,Instr:as directed on package labeling Special Instructions: as directed on package labeling Start Date: 04/05/14 Status: Ordered candesartan 4 mg oral tablet See Instructions, TAKE ONE TABLET BY MOUTH EVERY DAY, # 30 tabs, 3 Refill(s), Pharmacy: [place] [address], TAKE ONE TABLET BY MOUTH EVERY DAY Special Instructions: TAKE ONE TABLET BY MOUTH EVERY DAY Start Date: 01/18/14 Status: Ordered carvedilol 12.5 mg oral tablet See Instructions, 1/2 tabs mg Oral BID, # 60 tabs, 3 Refill(s), Pharmacy: [place] [address], 1/2 tabs mg Oral BID Special Instructions: 1/2 tabs mg Oral BID Start Date: 12/11/13 Status: Ordered citalopram 20 mg oral tablet See Instructions, TAKE ONE TABLET BY MOUTH EVERY DAY, # 30 tabs, 5 Refill(s), Pharmacy: [place] [address], TAKE ONE TABLET BY MOUTH EVERY DAY Special Instructions: TAKE ONE TABLET BY MOUTH EVERY DAY Start Date: 05/06/14 Status: Ordered Diflucan 150 mg oral tablet 1 tabs, Oral, q72hr, # 3 tabs, 0 Refill(s), Pharmacy: [place] [address], 1 tabs Oral q72hr Start Date: 06/18/14 Stop Date: 06/25/14 Status: Ordered famotidine 20 mg oral tablet 1 tabs, Oral, BID, # 60 tabs, 3 Refill(s), Pharmacy: [place] [address], 1 tabs Oral BID Start Date: 12/11/13 Status: Ordered Farxiga 5 mg oral tablet 1 tabs, Oral, Daily, # 30 tabs, 11 Refill(s) Start Date: 10/09/13 Status: Ordered Flector Patch 1.3% topical film, extended release 1 patches, Topical, BID, as needed for pain, # 30 patches, 1 Refill(s), Pharmacy : [place] [address] Start Date: 12/28/13 Status: Ordered furosemide 20 mg oral tablet See Instructions, 3 tabs mg Oral BID, 0 Refill(s) Special Instructions: 3 tabs mg Oral BID Start Date: 08/31/13 Status: Ordered Klor-Con M20 mEq, Oral, BID, 0 Refill(s) Start Date: 08/31/13 Status: Ordered Lantus Solostar Pen 100 units/mL subcutaneous solution 36 units, SubCutaneous, Bedtime (once a day), # 15 Each, 3 Refill(s), Pharmacy: [facility], 36 units SubCutaneous Bedtime (once a day) Start Date: 12/31/13 Status: Ordered metFORMIN 500 mg oral tablet 1 tabs, Oral, BID, # 60 tabs, 5 Refill(s), Pharmacy: [facility], 1 tabs Oral BID Start Date: 05/06/14 Status: Ordered NovoLOG FlexPen 100 units/mL subcutaneous solution 12 units, SubCutaneous, TIDAC, # 15 mL, 3 Refill(s), Pharmacy: [facility], 12 units SubCutaneous TIDAC Start Date: 12/31/13 Status: Ordered rosuvastatin 20 mg oral tablet [...] Patient Education Author: Luba Kerns DO Date: 06/18/14 Allergy Allergic Rhinitis Allergic rhinitis is when the mucous membranes in the nose respond to allergens. Allergens are particles in the air that cause your body to have an allergic reaction. This causes you to release allergic antibodies. Through a chain of events, these eventually cause you to release histamine into the blood stream. Although meant to protect the body, it is this release of histamine that causes your discomfort, such as frequent sneezing, congestion, and an itchy , runny nose. CAUSES Seasonal allergic rhinitis (hay fever ) is caused by pollen allergens that may come from grasses, trees, and weeds. Year-round allergic rhinitis (perennial allergic rhinitis ) is caused by allergens such as house dust mites, pet dander , and mold spores. SYMPTOMS Nasal stuffiness (congestion ). Itchy, runny nose with sneezing and tearing of the eyes. DIAGNOSIS Your health care provider can help you determine the allergen or allergens that trigger your symptoms. If you and your health care provider are unable to determine the allergen, skin or blood testing may be used. TREATMENT Allergic Rhinitis does not have a cure, but it can be controlled by: Medicines and allergy shots (immunotherapy ). Avoiding the allergen. Hay fever may often be treated with antihistamines in pill or nasal spray forms. Antihistamines block the effects of histamine. There are over-the- counter medicines that may help with nasal congestion and swelling around the eyes. Check with your health care provider before taking or giving this medicine. If avoiding the allergen or the medicine prescribed do not work, there are many new medicines your health care provider can prescribe. Stronger medicine may be used if initial measures are ineffective. Desensitizing injections can be used if medicine and avoidance does not work. Desensitization is when a patient is given ongoing shots until the body becomes less sensitive to the allergen. Make sure you follow up with your health care provider if problems continue. HOME CARE INSTRUCTIONS It is not possible to completely avoid allergens, but you can reduce your symptoms by taking steps to limit your exposure to them. It helps to know exactly what you are allergic to so that you can avoid your specific triggers. SEEK MEDICAL CARE IF: You have a fever. You develop a cough that does not stop easily (persistent ). You have shortness of breath. You start wheezing. Symptoms interfere with normal daily activities. Document Released: 11/06/2001 Document Revised: 12/02/2013 Document Reviewed: ExitCare Patient Information [facility]. No follow up information was provided. Extracted from: Title: OV: allergic rhinitis, yeast Author: Luba Kerns DO Date: 06/18/14 Assessment/Plan 1.Allergic rhinitis Flonase OTC and Mucinex Watch for fever or worsening symptoms after 7-10 days of the above treatment. call w/ report if these develop Ordered: Office Visit Level 3 Est 00064 Return to Clinic 2.Yeast vaginitis Diflucan 150mg po q72hr x 3 doses. Ordered: Office Visit Level 3 Est 71390 Return to Clinic Orders: fluconazole, 1 tabs, Oral, q72hr, # 3 tabs, 0 Refill(s), Pharmacy: [facility], 1 tabs Oral q72hr Future Scheduled TestsReferral* Return to Clinic 08/31/13 5:06 PM Referrals to Other Providers Referred by: Luba Kerns DO Referred by: Luba Kerns DO
--- OUTSIDE RECORDS SUMMARY | 2016-05-24 02:25 | XMS REPORT | Referral Summary ---
Author Author Via LEANNE Blake, [facility], Family Medicine Organization Via LEANNE Blake, [facility], [facility] Address Unknown Phone Unavailable Care Team Providers Care Professional Development Director Name Role Phone Itzel Kerns Primary Care Physician [phone] Encounter VC Date(s): 12/09/15 - 12/09/15 Via LEANNE Blake, [facility], [address] [address]- [place] Discharge Diagnosis: Vaginal discharge Discharge Diagnosis: Situational stress Discharge Diagnosis: Bronchitis Discharge Disposition: 01-Home or Self Care Attending Physician: Luba Kerns DO Admitting Physician: Luba Kerns DO Vital Signs Most recent to 1 oldest [Reference Range]: Apical Heart Rate 84 bpm [60-100 bpm] (12/09/15 10:59 AM) Blood Pressure 120/90 mmHg [90-140/60-90 mmHg] (12/09/15 10:59 AM) SpO2 98 % (12/09/15 10:59 AM) Problem List Condition Effective Dates Status [...] wheezing, # 1 Each, 11 Refill(s), Pharmacy: [facility] Start Date: 04/06/15 Status: Ordered Aspir-Low mg, Oral, Daily, 0 Refill(s) Start Date: 08/31/13 Status: Ordered candesartan 4 mg oral tablet See Instructions, TAKE ONE TABLET BY MOUTH ONCE DAILY, # 30 tabs, eRx: [facility] 346, TAKE ONE TABLET BY MOUTH ONCE DAILY Start Date: 10/06/15 Status: Ordered carvedilol 12.5 mg oral tablet See Instructions, 1/2 tabs mg Oral BID, # 90 tabs, 1 Refill(s), Pharmacy: [place] [address], 1/2 tabs mg Oral BID Start Date: 10/20/15 Status: Ordered doxycycline monohydrate 100 mg oral tablet 100 mg 1 tabs, Oral, BID, X 10 days, # 20 tabs, 0 Refill(s), Pharmacy: [place] [address], 1 tabs Oral BID,x10 days Start Date: 12/09/15 Stop Date: 12/19/15 Status: Ordered famotidine 20 mg oral tablet 20 mg 1 tabs, Oral, BID, # 180 tabs, 1 Refill(s), Pharmacy: [place] [address], 1 tabs Oral BID Start Date: 10/20/15 Status: Ordered Flector Patch 1.3% topical film, extended release 1 patches, Topical, BID, as needed for pain, # 60 patches, 1 Refill(s), Pharmacy : [place] [address] Start Date: 01/03/15 Status: Ordered furosemide 20 mg oral tablet See Instructions, TAKE THREE TABLETS BY MOUTH TWICE DAILY, # 540 tabs, eRx: [facility] 346, TAKE THREE TABLETS BY MOUTH TWICE DAILY Start Date: 09/14/15 Status: Ordered glucometer strips glucometer strips, See Instructions, Contour Next strips Test 4x/day dx: uncontrolled DM, # 1 boxes, 11 Refill(s), Pharmacy: [place] [address], Contour Next strips; Test 4x/day; dx: uncontrolled DM Start Date: 08/31/14 Status: Ordered ibuprofen 600 mg oral tablet 600 mg 1 tabs, Oral, TID, # 90 tabs, 0 Refill(s), Pharmacy: [facility] 346, 1 tabs Oral TID Start Date: 01/26/15 Status: Ordered Klor-Con M20 oral tablet, extended release 20 mEq 1 tabs, Oral, BID, # 180 tabs, 0 Refill(s), Pharmacy: [facility] 346, 1 tabs Oral BID Start Date: 08/11/15 Status: Ordered Lantus Solostar Pen 100 units/mL subcutaneous solution 36 units, SubCutaneous, Bedtime (once a day), # 15 Each, 5 Refill(s), Pharmacy: [place] [address], 36 units SubCutaneous Bedtime (once a day) Start Date: 05/30/15 Status: Ordered metFORMIN 500 mg oral tablet 500 mg 1 tabs, Oral, BID, # 180 tabs, 1 Refill(s), Pharmacy: [place] [address], 1 tabs Oral BID Start Date: 10/20/15 Status: Ordered NovoLOG FlexPen 100 units/mL subcutaneous solution 12 units, SubCutaneous, TIDAC, # 15 mL, 5 Refill(s), Pharmacy: [place] [address], 12 units SubCutaneous TIDAC Start Date: 05/30/15 Status: Ordered Relion Pen Neddles 31gx6 mm Relion Pen Neddles 31gx6 mm, See Instructions, [facility] ad directed Dx:250.00, # 1 bottles, 5 Refill(s), Pharmacy: [place] [address], [facility] ad directed; Dx: 250.00 Start Date: 09/16/14 Status: Ordered RELION PEN NEEDLES 06LW4IN MIS See Instructions, USE DIRECTED, # 50 unknown unit, eRx: [place] [address] , USE DIRECTED Start Date: 08/09/15 Status: Ordered rosuvastatin 20 mg oral tablet See Instructions, TAKE ONE TABLET BY MOUTH ONCE DAILY AT BEDTIME, # 30 tabs, eRx : [place] [address], TAKE ONE TABLET BY MOUTH ONCE DAILY [...] Assessment and Plan Extracted from: Title: OV: bronchitis, vag dc, mood Author: Luba Kerns DO Date: Assessment/Plan 1.Bronchitis Productive cough x 3 wks in uncontrolled diabetic -- will treat w/ abx doxycycline 100mg BID x 10 days continue OTC treatments for other symptoms. Ordered: Office Visit Level 4 Est 89243 2.Vaginal discharge empiric Diflucan 150mg po x 1. if not improved, f/u for swab Ordered: Office Visit Level 4 Est 93613 3.Situational stress She is working on dealing these things on her own Ordered: Office Visit Level 4 Est 22770
--- OUTSIDE RECORDS SUMMARY | 2016-05-24 02:25 | XMS REPORT | Referral Summary ---
Author Organization Unknown Address Unknown Phone Unavailable Care Team Providers Care Sales Vendor Name Role Phone Itzel Kerns Primary Care Physician [phone] Encounter VC Date(s): 03/26/14 - 03/26/14 [facility] LEANNE Blake, [facility], Family Medicine [address] [place] [id number] [place] [address] Discharge Diagnosis: Headache Discharge Diagnosis: Abdominal cramps Discharge Diagnosis: Nausea Discharge Disposition: Home or Self Care Attending Physician: Luba Kerns DO Admitting Physician: Luba Kerns DO Vital Signs Most recent to 1 oldest [Reference Range]: Temperature Oral 36.4 degC [35.8-37.3 degC] (03/26/14 9:56 AM) Apical Heart Rate 78 bpm [60-100 bpm] (03/26/14 9:56 AM) Blood Pressure 110/70 mmHg [90-140/60-90 mmHg] (03/26/14 9:56 AM) Most recent to 1 oldest [Reference Range]: SpO2 98 % (03/26/14 9:56 AM) Problem List Condition Effective Dates Status [...] wheezing, # 1 Each, 0 Refill(s), Pharmacy: [facility] Start Date: 12/28/13 Status: Ordered Aspir-Low mg, Oral, Daily, 0 Refill(s) Start Date: 08/31/13 Status: Ordered candesartan 4 mg oral tablet See Instructions, TAKE ONE TABLET BY MOUTH EVERY DAY, # 30 tabs, 3 Refill(s), Pharmacy: [place] [address], TAKE ONE TABLET BY MOUTH EVERY DAY Special Instructions: TAKE ONE TABLET BY MOUTH EVERY DAY Start Date: 01/18/14 Status: Ordered carvedilol 12.5 mg oral tablet See Instructions, 1/2 tabs mg Oral BID, # 60 tabs, 3 Refill(s), Pharmacy: [place] [address], 1/2 tabs mg Oral BID Special Instructions: 1/2 tabs mg Oral BID Start Date: 12/11/13 Status: Ordered citalopram 20 mg oral tablet See Instructions, TAKE ONE TABLET BY MOUTH EVERY DAY, # 30 tabs, 3 Refill(s), Pharmacy: [place] [address], TAKE ONE TABLET BY MOUTH EVERY DAY Special Instructions: TAKE ONE TABLET BY MOUTH EVERY DAY Start Date: 03/11/14 Status: Ordered famotidine 20 mg oral tablet 1 tabs, Oral, BID, # 60 tabs, 3 Refill(s), Pharmacy: [place] [address], 1 tabs Oral BID Start Date: 12/11/13 Status: Ordered Farxiga 5 mg oral tablet 1 tabs, Oral, Daily, # 30 tabs, 11 Refill(s) Start Date: 10/09/13 Status: Ordered Flector Patch 1.3% topical film, extended release 1 patches, Topical, BID, as needed for pain, # 30 patches, 1 Refill(s), Pharmacy : [place] [address] Start Date: 12/28/13 Status: Ordered furosemide 20 mg oral tablet See Instructions, 3 tabs mg Oral BID, 0 Refill(s) Special Instructions: 3 tabs mg Oral BID Start Date: 08/31/13 Status: Ordered Klor-Con M20 mEq, Oral, BID, 0 Refill(s) Start Date: 08/31/13 Status: Ordered Lantus Solostar Pen 100 units/mL subcutaneous solution 36 units, SubCutaneous, Bedtime (once a day), # 15 Each, 3 Refill(s), Pharmacy: [place] [address], 36 units SubCutaneous Bedtime (once a day) Start Date: 12/31/13 Status: Ordered metFORMIN 500 mg oral tablet 1 tabs, Oral, BID, # 60 tabs, 3 Refill(s), Pharmacy: [facility], 1 tabs Oral BID Start Date: 11/04/13 Status: Ordered NovoLOG FlexPen 100 units/mL subcutaneous solution 12 units, SubCutaneous, TIDAC, # 15 mL, 3 Refill(s), Pharmacy: [facility] 346, 12 units SubCutaneous TIDAC Start Date: 12/31/13 Status: Ordered promethazine 12.5 mg oral tablet 1 tabs, Oral, q6hr, # 20 tabs, 0 Refill(s), Pharmacy: [facility] 346, 1 tabs Oral q6hr Start Date: [...] Patient Education Author: Luba Kerns DO Date: 03/26/14 Family Medicine Clear Liquid Diet The clear liquid dietconsists of foods that are liquid or will become liquid at room temperature.You should be able to see through the liquid and beverages. Examples of foods allowed on a clear liquid diet include fruit juice , broth or bouillon, gelatin, or frozen ice pops. The purpose of this diet is to provide necessary fluid, electrolytes such as sodium and potassium, and energy to keep the body functioning during times when you are not able to consume a regular diet.A clear liquid diet should not be continued for long periods of time as it is not nutritionally adequate. REASONS FOR USING A CLEAR LIQUID DIET In sudden onset (acute ) conditions for a patient before or after surgery. As the first step in oral feeding. For fluid and electrolyte replacement in diarrheal diseases. As a diet before certain medical tests are performed. ADEQUACY The clear liquid diet is adequate only in ascorbic acid, according to the Recommended Dietary Allowances of the [employer]. CHOOSING FOODS Breads and Starches Allowed: None are allowed. Avoid: All are avoided. Vegetables Allowed: Strained tomato or vegetable juice. Avoid: Any others. Fruit Allowed: Strained fruit juices and fruit drinks. Include 1 serving of citrus or vitamin C-enriched fruit juice daily. Avoid: Any others. Meat and Meat Substitutes Allowed: None are allowed. Avoid: All are avoided. Milk Allowed: None are allowed. Avoid: All are avoided. Soups and Combination Foods Allowed: Clear bouillon, broth, or strained broth-based soups. Avoid: Any others. Desserts and Sweets Allowed: Sugar, honey. High protein gelatin. Flavored gelatin, ices, or frozen ice pops that do not contain milk. Avoid: Any others. Fats and Oils Allowed: None are allowed. Avoid: All are avoided. Beverages Allowed: Cereal beverages, coffee (regular or decaffeinated), tea, or soda at the discretion of your caregiver. Avoid: Any others. Condiments Allowed: Iodized salt. Avoid: Any others, including pepper. Supplements Allowed: Liquid nutrition beverages. Avoid: Any others that contain lactose or fiber. SAMPLE MEAL PLAN Breakfast 4 oz (120 mL) strained orange juice. to 1 cup (125 to 250 mL) gelatin (plain or fortified). 1 cup (250 mL) beverage (coffee or tea). Sugar, if desired. Midmorning Snack cup (125 mL) gelatin (plain or fortified). Lunch 1 cup (250 mL) broth or consomm. 4 oz (120 mL) strained grapefruit juice. cup (125 mL) gelatin (plain or fortified). 1 cup (250 mL) beverage (coffee or tea). Sugar, if desired. Midafternoon Snack cup (125 mL) fruit ice. cup (125 mL) strained fruit juice. Dinner 1 cup (250 mL) broth or consomm. cup (125 mL) cranberry juice. cup (125 mL) flavored gelatin (plain or fortified). 1 cup (250 mL) beverage (coffee or tea). Sugar, if desired. Evening Snack 4 oz (120 mL) strained apple juice (vitamin C-fortified). cup (125 mL) flavored gelatin (plain or fortified). Document Released: 02/11/2006 Document Revised: 05/05/2012 Document Reviewed: ExitCare Patient Information 2014 [employer]. No follow up information was provided. Extracted from: Title: OV: nausea, headache Author: Luba Kerns DO Date: 03/26/14 Assessment/Plan Abdominal cramps see below Ordered: Office Visit Level 3 Est 92023 Return to Clinic Headache Toradol 60mg IM in the office Ordered: Office Visit Level 3 Est 43190 Return to Clinic Nausea Probably viral gastroenteritis that is resolving. Promethazine 12.5mg tab RX sent to pharmacy [place] diet; advance as tolerated f/u PRN Ordered: Office Visit Level 3 Est 87368 Return to Clinic Orders: promethazine, 1 tabs, Oral, q6hr, # 20 tabs, 0 Refill(s), Pharmacy: [facility], 1 tabs Oral q6hr Future Scheduled TestsReferral* Return to Clinic 08/31/13 5:06 PM Referrals to Other Providers Referred by: Luba Kerns DO Referred by: Luba Kerns DO
--- OUTSIDE RECORDS SUMMARY | 2016-05-24 02:25 | XMS REPORT | Referral Summary ---
Author Author Via LEANNE Blake, [facility], [facility] Organization Via LEANNE Blake, [facility] Address Unknown Phone Unavailable Care Team Providers Care Log Chipper Name Role Phone Itzel Kerns Primary Care Physician [phone] Encounter VC Date(s): 08/31/14 - 08/31/14 [facility] LEANNE Blake, [address] [place] [address] Discharge Diagnosis: Vaginal itching Discharge Diagnosis: Dysuria Discharge Disposition: 01-Home or Self Care Attending Physician: Luba Kerns DO Admitting Physician: Luba Kerns DO Vital Signs Most recent to 1 oldest [Reference Range]: Temperature Oral 37 degC [35.8-37.3 degC] (08/31/14 11:12 AM) Apical Heart Rate 82 bpm [60-100 bpm] (08/31/14 11:12 AM) Blood Pressure 140/80 mmHg [90-140/60-90 mmHg] (08/31/14 11:12 AM) SpO2 97 % (08/31/14 11:12 AM) Problem List Condition Effective Dates Status [...] wheezing, # 1 Each, 0 Refill(s), Pharmacy: [email or web address] Start Date: 12/28/13 Status: Ordered Aspir-Low mg, Oral, Daily, 0 Refill(s) Start Date: 08/31/13 Status: Ordered candesartan 4 mg oral tablet See Instructions, TAKE ONE TABLET BY MOUTH EVERY DAY, # 30 tabs, 5 Refill(s), Pharmacy: [place] [address], TAKE ONE TABLET BY MOUTH EVERY DAY Start Date: 09/16/14 Status: Ordered carvedilol 12.5 mg oral tablet See Instructions, 1/2 tabs mg Oral BID, # 60 tabs, 3 Refill(s), Pharmacy: [place] [address], 1/2 tabs mg Oral BID Start Date: 12/24/14 Status: Ordered citalopram 20 mg oral tablet 40 mg 2 tabs, Oral, Daily, X 30 days, # 60 tabs, 5 Refill(s), Pharmacy: [place] [address], 2 tabs Oral Daily,x30 days Start Date: 12/16/14 Stop Date: 06/14/15 Status: Ordered Crestor 20 mg oral tablet See Instructions, 1 tabs Oral Bedtime (once a day), # 30 tabs, eRx: [place] [address], 1 tabs Oral Bedtime (once a day) Start Date: 03/02/15 Status: Ordered famotidine 20 mg oral tablet 20 mg 1 tabs, Oral, BID, # 60 tabs, 5 Refill(s), Pharmacy: [place] [address] , 1 tabs Oral BID Start Date: 03/03/15 Status: Ordered Flector Patch 1.3% topical film, extended release 1 patches, Topical, BID, as needed for pain, # 60 patches, 1 Refill(s), Pharmacy : [place] [address] Start Date: 01/03/15 Status: Ordered furosemide 20 mg oral tablet See Instructions, 3 tabs mg Oral BID, # 540 Each, 3 Refill(s), Pharmacy: [place] [address], 3 tabs mg Oral BID Start Date: 07/21/14 Status: Ordered glucometer strips glucometer strips, See Instructions, Contour Next strips Test 4x/day dx: uncontrolled DM, # 1 boxes, 11 Refill(s), Pharmacy: [place] [address], Contour Next strips; Test 4x/day; dx: uncontrolled DM Start Date: 08/31/14 Status: Ordered ibuprofen 600 mg oral tablet 600 mg 1 tabs, Oral, TID, # 90 tabs, 0 Refill(s), Pharmacy: [facility], 1 tabs Oral TID Start Date: 01/26/15 Status: Ordered Klor-Con M20 oral tablet, extended release 20 mEq 1 tabs, Oral, BID, # 180 tabs, 3 Refill(s), Pharmacy: [facility], 1 tabs Oral BID Start Date: 07/21/14 Status: Ordered Lantus Solostar Pen 100 units/mL subcutaneous solution 36 units, SubCutaneous, Bedtime (once a day), # 15 Each, 5 Refill(s), Pharmacy: [facility], 36 units SubCutaneous Bedtime (once a day) Start Date: 01/19/15 Status: Ordered metFORMIN 500 mg oral tablet 500 mg 1 tabs, Oral, BID, # 60 tabs, 5 Refill(s), Pharmacy: [facility], 1 tabs Oral BID Start Date: 03/03/15 Status: Ordered NovoLOG FlexPen 100 units/mL subcutaneous solution 12 units, SubCutaneous, TIDAC, # 15 mL, 3 Refill(s), Pharmacy: [facility], 12 units SubCutaneous TIDAC Start Date: 12/31/13 Status: Ordered Relion Pen Neddles 31gx6 mm Relion Pen Neddles 31gx6 mm, See Instructions, [facility] ad directed Dx:250.00, # 1 bottles, 5 Refill(s), Pharmacy: [facility] ad directed; Dx: 250.00 Start Date: [...] Patient Education Author: Luba Kerns DO Date: 08/31/14 Family Medicine Dysuria Dysuria is the medical term for pain with urination. There are many causes for dysuria, but urinary tract infection is the most common. If a urinalysis was performed it can show that there is a urinary tract infection. A urine culture confirms that you or your child is sick. You will need to follow up with a healthcare provider because: If a urine culture was done you will need to know the culture results and treatment recommendations. If the urine culture was positive, you or your child will need to be put on antibiotics or know if the antibiotics prescribed are the right antibiotics for your urinary tract infection. If the urine culture is negative (no urinary tract infection), then other causes may need to be explored or antibiotics need to be stopped. Today laboratory work may have been done and there does not seem to be an infection. If cultures were done they will take at least 24 to 48 hours to be completed. Today x-rays may have been taken and they read as normal. No cause can be found for the problems. The x-rays may be re-read by a radiologist and you will be contacted if additional findings are made. You or your child may have been put on medications to help with this problem until you can see your primary caregiver. If the problems get better, see your primary caregiver if the problems return. If you were given antibiotics ( medications which kill germs), take all of the mediations as directed for the full course of treatment. If laboratory work was done, you need to find the results. Leave a telephone number where you can be reached. If this is not possible, make sure you find out how you are to get test results. HOME CARE INSTRUCTIONS Drink lots of fluids. For adults, drink eight, 8 ounce glasses of clear juice or water a day. For children, replace fluids as suggested by your caregiver. Empty the bladder often. Avoid holding urine for long periods of time. After a bowel movement, women should cleanse front to back, using each tissue only once. Empty your bladder before and after sexual intercourse. Take all the medicine given to you until it is gone. You may feel better in a few days, but TAKE ALL MEDICINE. Avoid caffeine, tea, alcohol and carbonated beverages, because they tend to irritate the bladder. In men, alcohol may irritate the prostate. Only take isoo-xop-mefpgbo or prescription medicines for pain, discomfort, or fever as directed by your caregiver. If your caregiver has given you a follow-up appointment, it is very important to keep that appointment. Not keeping the appointment could result in a chronic or permanent injury, pain, and disability. If there is any problem keeping the appointment, you must call back to this facility for assistance. SEEK IMMEDIATE MEDICAL CARE IF: Back pain develops. A fever develops. There is nausea (feeling sick to your stomach) or vomiting (throwing up) . Problems are no better with medications or are getting worse. MAKE SURE YOU: Understand these instructions. Will watch your condition. Will get help right away if you are not doing well or get worse. Document Released: 11/09/2004 Document Revised: 05/05/2012 Document Reviewed: ExitCare Patient Information 2014 [email or web address]. No follow up information was provided. Extracted from: Title: OV: dysuria Author: Luba Kerns DO Date: 08/31/14 Assessment/Plan 1.Dysuria Will treat for UTI until culture comes back. Cipro 500mg BID x 7 days Ordered: Office Visit Level 3 Est 15407 Return to Clinic 2.Vaginal itching Diflucan 150mg po x 1 DC Farxiga d/t recurrent yeast infection complaints. Will need to be more compliant with insulin and FSBS checking. She is confident she can do so. Ordered: Office Visit Level 3 Est 33759 Return to Clinic Orders: ciprofloxacin, 500 mg 1 tabs, Oral, q12hr, X 7 days, # 14 tabs, 0 Refill(s), [facility], 1 tabs Oral q12hr,x7 days fluconazole, 150 mg 1 tabs, Oral, Daily, # 1 tabs, 1 Refill(s), Pharmacy: [facility], 1 tabs Oral Daily Misc Medication, glucometer strips, See Instructions, Contour Next strips Test 4x/day dx: uncontrolled DM, # 1 boxes, 11 Refill(s), [facility], Contour Next strips; Test 4x/day; dx: uncontrolled DM Addendum Urine Dipstick by LuisF, Urine Color Urine Dipstick :Valery Robbins DO Urine Appearance Urine Dipstick :Clear on August Glucose Urine Dipstick :1000 mg/dl 2014 Bilirubin Urine Dipstick :Negative 11:45:03 Ketones Urine Dipstick :Negative CDT Specific [place] Urine Dipstick :1.015 Blood Urine Dipstick :Trace pH Urine Dipstick :5.5 Protein Urine Dipstick :Trace Urobilinogen Urine Dipstick :0.2 mg/dl Nitrite Urine Dipstick :Negative Leukocytes Urine Dipstick :Trace Referrals to Other Providers Referred by: Luba Kerns DO
--- OUTSIDE RECORDS SUMMARY | 2016-05-24 02:25 | XMS REPORT ---
Author Author Che Ashton Organization [facility] Address [address] [place] [address] Care Team Providers Care Lobby Attendant Name Role Phone Che Ashton Unavailable [phone] PROBLEMS Type Condition ICD9-CM Code [id number] Code Onset Dates Condition Status SNOMED Code Problem Dyslipidemia E78.5 Active 673373460 Problem Nonischemic cardiomyopathy I42.9 Active 83843275 Problem Hypertension, well controlled I10 Active 46158887 Problem Mild mitral regurgitation I34.0 Active 15899307 Problem Morbid obesity E66.01 Active 546764659 Problem Diabetes mellitus type II, controlled E11.9 Active 767863615 Problem AICD (automatic cardioverter/defibrillator) present Z95.810 Active 022959220 ALLERGIES Unknown Allergies SOCIAL HISTORY No smoking Hx information available PLAN OF CARE VITAL SIGNS MEDICATIONS Unknown Medications RESULTS No Results PROCEDURES No Known procedures IMMUNIZATIONS No Known Immunizations
--- OUTSIDE RECORDS SUMMARY | 2016-05-24 02:25 | XMS REPORT | Referral Summary ---
Author Author Via LEANNE Blake, [facility], [facility] Organization Via LEANNE Blake, [facility] Address Unknown Phone Unavailable Care Team Providers Care Delivery Stock Clerk Name Role Phone Itzel Kerns Primary Care Physician [phone] Encounter VC Date(s): 04/04/16 - 04/04/16 Via LEANNE Blake, [facility], [id number] [place] [address] Discharge Diagnosis: Low back pain Discharge Diagnosis: Vaginal discharge Discharge Diagnosis: DM2 (diabetes mellitus, type 2) Discharge Disposition: 01-Home or Self Care Attending Physician: Luba Kerns DO Admitting Physician: Luba Kerns DO Vital Signs Most recent to 1 oldest [Reference Range]: Apical Heart Rate 89 bpm [60-100 bpm] (04/04/16 1:19 PM) Blood Pressure 148/90 mmHg [90-140/60-90 mmHg] *HI* (04/04/16 1:19 PM) SpO2 97 % (04/04/16 1:19 PM) Problem List Condition Effective Dates Status [...] wheezing, # 1 Each, 11 Refill(s), Pharmacy: [facility] Start Date: 04/06/15 Status: Ordered Aspir-Low mg, Oral, Daily, 0 Refill(s) Start Date: 08/31/13 Status: Ordered candesartan 4 mg oral tablet See Instructions, TAKE ONE TABLET BY MOUTH ONCE DAILY, # 30 tabs, 2 Refill(s), eRx: [facility], TAKE ONE TABLET BY MOUTH ONCE DAILY Start Date: 12/19/15 Status: Ordered carvedilol 12.5 mg oral tablet See Instructions, 1/2 tabs mg Oral BID, # 90 tabs, 1 Refill(s), Pharmacy: [place] [address], 1/2 tabs mg Oral BID Start Date: 10/20/15 Status: Ordered famotidine 20 mg oral tablet 20 mg 1 tabs, Oral, BID, # 180 tabs, 1 Refill(s), Pharmacy: [place] [address], 1 tabs Oral BID Start Date: 10/20/15 Status: Ordered Flector Patch 1.3% topical film, extended release 1 patches, Topical, BID, as needed for pain, # 60 patches, 1 Refill(s), Pharmacy : [place] [address] Start Date: 04/04/16 Status: Ordered furosemide 20 mg oral tablet See Instructions, TAKE THREE TABLETS BY MOUTH TWICE DAILY, # 540 tabs, eRx: [place] [address], TAKE THREE TABLETS BY MOUTH TWICE DAILY Start Date: 09/14/15 Status: Ordered glucometer strips glucometer strips, See Instructions, Contour Next strips Test 4x/day dx: uncontrolled DM, # 1 boxes, 11 Refill(s), Pharmacy: [place] [address], Contour Next strips; Test 4x/day; dx: uncontrolled DM Start Date: 08/31/14 Status: Ordered ibuprofen 600 mg oral tablet 600 mg 1 tabs, Oral, TID, # 90 tabs, 0 Refill(s), Pharmacy: [facility], 1 tabs Oral TID Start Date: 01/26/15 Status: Ordered Klor-Con M20 oral tablet, extended release 20 mEq 1 tabs, Oral, BID, # 180 tabs, 0 Refill(s), Pharmacy: [facility], 1 tabs Oral BID Start Date: 02/07/16 Status: Ordered Lantus Solostar Pen 100 units/mL subcutaneous solution 36 units, SubCutaneous, Bedtime (once a day), # 15 Each, 5 Refill(s), Pharmacy: [place] [address], 36 units SubCutaneous Bedtime (once a day) Start Date: 05/30/15 Status: Ordered metFORMIN 500 mg oral tablet 500 mg 1 tabs, Oral, BID, # 180 tabs, 1 Refill(s), Pharmacy: [place] [address], 1 tabs Oral BID Start Date: 10/20/15 Status: Ordered NovoLOG FlexPen 100 units/mL subcutaneous solution 12 units, SubCutaneous, TIDAC, # 15 mL, 5 Refill(s), Pharmacy: [place] [address], 12 units SubCutaneous TIDAC Start Date: 05/30/15 Status: Ordered Relion Pen Neddles 31gx6 mm Relion Pen Neddles 31gx6 mm, See Instructions, [facility] ad directed Dx:250.00, # 1 bottles, 5 Refill(s), Pharmacy: [place] [address], [facility] ad directed; Dx: 250.00 Start Date: 09/16/14 Status: Ordered RELION PEN NEEDLES [id number] MIS See Instructions, USE DIRECTED, # 50 unknown unit, eRx: [place] [address] , USE DIRECTED Start Date: 08/09/15 Status: Ordered rosuvastatin 20 mg oral tablet See Instructions, TAKE ONE TABLET BY MOUTH ONCE DAILY AT BEDTIME, # 30 tabs, eRx : [place] [address], TAKE ONE TABLET BY MOUTH ONCE DAILY AT BEDTIME Start Date: 10/21/15 Status: Ordered spironolactone 25 mg oral tablet 1 tabs, Oral, Daily, # 30 tabs, 0 Refill(s) Start Date: 08/31/13 Status: Ordered Results Microbiology Reports TEST: Affirm Vaginitis Panel STATUS: Auth (Verified) BODY SITE: SOURCE: Cervical COLLECTED DATE/TIME: 04/04/16 2:00 PM Affirm Vaginitis Panel POSITIVE FOR [place] SPECIES Negative for Trichomonas vaginalis Negative for Gardnerella vaginalis Immunizations Given and Recorded Vaccine Date Status Refusal Reason influenza virus vaccine, live 11/18/12 Given pneumococcal 13-valent conjugate vaccine1 11/18/12 Given pneumococcal 23-polyvalent vaccine 11/18/12 Given 1Result Comment: [11/02/2014 Uncharted] Uploaded in Error - CC Procedures Procedure Date Related Diagnosis Body Site Cardiomyopathy section Pacemaker Social History Social History Type Response Smoking Status Former smoker Assessment and Plan Extracted from: Title: OV: back pain, vag dc Author: Luba Kerns DO Date: 04/04/16 Assessment/Plan 1.Low back pain I think her is still musculoskeletal. Recommended using Flector patch and giving this more time to heal No signs of radiculopathy at this point. Ordered: Office Visit Level 4 Est 29932 2.Vaginal discharge Affirm swab today treat as indicated Ordered: Office Visit Level 4 Est 20879 3.DM2 (diabetes mellitus, type 2) uncontrolled. due for diabetic checkup next month Ordered: Office Visit Level 4 Est 97896 4. dysmenorrhea. Refer to Dr. Nicholson per her request
--- OUTSIDE RECORDS SUMMARY | 2016-05-24 02:25 | XMS REPORT | Referral Summary ---
Author Author [facility] LEANNE Blake, [facility], [facility] Organization Via LEANNE Blake, [facility] Address Unknown Phone Unavailable Care Team Providers Care Senior Center Manager Name Role Phone Itzel Kerns Primary Care Physician [phone] Encounter Date(s): 03/14/15 - 03/14/15 Via LEANNE Blake, [address] [id number] Discharge Diagnosis: Ankle sprain Discharge Diagnosis: RAD (reactive airway disease) Discharge Diagnosis: Diabetes with retinopathy Discharge Disposition: 01-Home or Self Care Attending Physician: Luba Kerns DO Admitting Physician: Luba Kerns DO Vital Signs Most recent to 1 oldest [Reference Range]: Peripheral Pulse 88 bpm Rate [60-100 bpm] (03/14/15 9:01 AM) Blood Pressure 132/78 mmHg [90-140/60-90 mmHg] (03/14/15 9:01 AM) SpO2 97 % (03/14/15 9:01 AM) Problem List Condition Effective Dates Status [...] wheezing, # 1 Each, 11 Refill(s), Pharmacy: [facility] Start Date: 03/14/15 Status: Ordered Aspir-Low mg, Oral, Daily, 0 Refill(s) Start Date: 08/31/13 Status: Ordered candesartan 4 mg oral tablet See Instructions, TAKE ONE TABLET BY MOUTH EVERY DAY, # 30 tabs, 5 Refill(s), Pharmacy: [facility], TAKE ONE TABLET BY MOUTH EVERY DAY Start Date: 09/16/14 Status: Ordered carvedilol 12.5 mg oral tablet See Instructions, 1/2 tabs mg Oral BID, # 60 tabs, 3 Refill(s), Pharmacy: [place] [id number], 1/2 tabs mg Oral BID Start Date: 12/24/14 Status: Ordered citalopram 20 mg oral tablet 40 mg 2 tabs, Oral, Daily, X 30 days, # 60 tabs, 5 Refill(s), Pharmacy: [place] [address], 2 tabs Oral Daily,x30 days Start Date: 12/16/14 Stop Date: 06/14/15 Status: Ordered Crestor 20 mg oral tablet See Instructions, 1 tabs Oral Bedtime (once a day), # 30 tabs, eRx: [place] [address], 1 tabs Oral Bedtime (once a day) Start Date: 03/02/15 Status: Ordered famotidine 20 mg oral tablet 20 mg 1 tabs, Oral, BID, # 60 tabs, 5 Refill(s), Pharmacy: [place] [address] , 1 tabs Oral BID Start Date: 03/03/15 Status: Ordered Flector Patch 1.3% topical film, extended release 1 patches, Topical, BID, as needed for pain, # 60 patches, 1 Refill(s), Pharmacy : [place] [address] Start Date: 01/03/15 Status: Ordered furosemide 20 mg oral tablet See Instructions, 3 tabs mg Oral BID, # 540 Each, 3 Refill(s), Pharmacy: [place] [address], 3 tabs mg Oral BID Start Date: 07/21/14 Status: Ordered glucometer strips glucometer strips, See Instructions, Contour Next strips Test 4x/day dx: uncontrolled DM, # 1 boxes, 11 Refill(s), Pharmacy: [place] [address], Contour Next strips; Test 4x/day; dx: uncontrolled DM Start Date: 08/31/14 Status: Ordered ibuprofen 600 mg oral tablet 600 mg 1 tabs, Oral, TID, # 90 tabs, 0 Refill(s), Pharmacy: [facility], 1 tabs Oral TID Start Date: 01/26/15 Status: Ordered Klor-Con M20 oral tablet, extended release 20 mEq 1 tabs, Oral, BID, # 180 tabs, 3 Refill(s), Pharmacy: [facility], 1 tabs Oral BID Start Date: 07/21/14 Status: Ordered Lantus Solostar Pen 100 units/mL subcutaneous solution 36 units, SubCutaneous, Bedtime (once a day), # 15 Each, 5 Refill(s), Pharmacy: [facility], 36 units SubCutaneous Bedtime (once a day) Start Date: 01/19/15 Status: Ordered metFORMIN 500 mg oral tablet 500 mg 1 tabs, Oral, BID, # 60 tabs, 5 Refill(s), Pharmacy: [facility], 1 tabs Oral BID Start Date: 03/03/15 Status: Ordered NovoLOG FlexPen 100 units/mL subcutaneous solution 12 units, SubCutaneous, TIDAC, # 15 mL, 3 Refill(s), Pharmacy: [facility], 12 units SubCutaneous TIDAC Start Date: 12/31/13 Status: Ordered Relion Pen Neddles 31gx6 mm Relion Pen Neddles 31gx6 mm, See Instructions, [facility] ad directed Dx:250.00, # 1 bottles, 5 Refill(s), Pharmacy: [facility], [facility] ad directed; Dx: 250.00 Start Date: 09/16/14 Status: Ordered spironolactone 25 mg oral tablet 1 tabs, Oral, Daily, # 30 tabs, 0 Refill(s) Start Date: 08/31/13 Status: Ordered Results Chemistry Most recent to 1 oldest [Reference Range]: Hgb A1c [4.1-5.6 %] 8.8 % *HI* (03/14/15 9:32 AM) eAvg Glucose 205.9 mg/dL (03/14/15 9:32 AM) Immunizations Vaccine Date Refusal Reason influenza virus vaccine, live 11/18/12 pneumococcal 23-polyvalent vaccine 11/18/12 Procedures Procedure Date Related Diagnosis Body Site Cardiomyopathy section Pacemaker Social History Social History Type Response Smoking Status Never smoker Assessment and Plan Extracted from: Title: Ambulatory Patient Education Author: Luba Kerns DO Date: 03/14/15 Family Medicine Ankle Sprain An ankle sprain is an injury to the strong, fibrous tissues (ligaments) that hold your ankle bones together. HOME CARE Put ice on your ankle for 12 days or as told by your doctor. Put ice in a plastic bag. Place a towel between your skin and the bag. Leave the ice on for 15-20 minutes at a time, every 2 hours while you are awake. Only take medicine as told by your doctor. Raise (elevate) your injured ankle above the level of your heart as much as possible for 23 days. Use crutches if your doctor tells you to. Slowly put your own weight on the affected ankle. Use the crutches until you can walk without pain. If you have a plaster splint: Do not rest it on anything harder than a pillow for 24 hours. Do not put weight on it. Do not get it wet. Take it off to shower or bathe. If given, use an elastic wrap or support stocking for support. Take the wrap off if your toes lose feeling (numb), tingle, or turn cold or blue. If you have an air splint: Add or let out air to make it comfortable. Take it off at night and to shower and bathe. Wiggle your toes and move your ankle up and down often while you are wearing it. GET HELP IF: You have rapidly increasing bruising or puffiness (swelling). Your toes feel very cold. You lose feeling in your foot. Your medicine does not help your pain. GET HELP RIGHT AWAY IF: Your toes lose feeling (numb) or turn blue. You have severe pain that is increasing. MAKE SURE YOU: Understand these instructions. Will watch your condition. Will get help right away if you are not doing well or get worse. Document Released: 07/30/2008 Document Revised: 06/28/2014 Document Reviewed: ExitCare Patient Information 2015 [employer]. This information is not intended to replace advice given to you by your health care provider. Make sure you discuss any questions you have with your health care provider. No follow up information was provided. Extracted from: Title: OV: ankle pain, DM2 Author: Luba Kerns DO Date: 03/14/15 Assessment/Plan 1.Ankle sprain Pain is improving w/ time OK to continue Ibp PRN ankle sprain rehab handout provided. If not continuing to improve, we can order PT at [facility] Ordered: Office Visit Level 4 Est 90646 Return to Clinic 2.Diabetes with retinopathy Stressed importance of getting her sugars under better control This starts w/ her actually taking her insulins as instructed. She pledges to "do better" at compliance and checking her fingerstick sugars. Exercise recommended Ordered: Hemoglobin A1c Office Visit Level 4 Est 59558 3.RAD (reactive airway disease) Albuterol inhalerrefilled. OK to use PRN. If needing more than 2x/wk, we need to evaluate this further. Ordered: Office Visit Level 4 Est 68438 Return to Clinic Orders: albuterol, 2 puffs, Inhalation, QID, as needed for wheezing, # 1 Each , 11 Refill(s), Pharmacy: [facility] Referrals to Other Providers Referred by: Luba Kerns DO
--- OUTSIDE RECORDS SUMMARY | 2016-05-24 02:25 | XMS REPORT | Referral Summary ---
Author Author Via LEANNE Blake, [facility], [facility] Organization Via LEANNE Blake, [facility] Address Unknown Phone Unavailable Care Team Providers Care Stereotyper Apprentice Name Role Phone Itzel Kerns Primary Care Physician [phone] Encounter VC Date(s): 01/31/15 - 01/31/15 [facility] LEANNE Blake, [address] [address] Discharge Diagnosis: Gastroenteritis Discharge Disposition: 01-Home or Self Care Attending Physician: Luba Kerns DO Admitting Physician: Luba Kerns DO Vital Signs Most recent to 1 oldest [Reference Range]: Temperature Oral 37.0 degC [35.8-37.3 degC] (01/31/15 1:38 PM) Peripheral Pulse 84 bpm Rate [60-100 bpm] (01/31/15 1:38 PM) Blood Pressure 118/84 mmHg [90-140/60-90 mmHg] (01/31/15 1:38 PM) SpO2 96 % (01/31/15 1:38 PM) Problem List Condition Effective Dates Status [...] wheezing, # 1 Each, 0 Refill(s), Pharmacy: [facility] Start Date: 12/28/13 Status: Ordered Aspir-Low mg, Oral, Daily, 0 Refill(s) Start Date: 08/31/13 Status: Ordered candesartan 4 mg oral tablet See Instructions, TAKE ONE TABLET BY MOUTH EVERY DAY, # 30 tabs, 5 Refill(s), Pharmacy: [place] [address], TAKE ONE TABLET BY MOUTH EVERY DAY Start Date: 09/16/14 Status: Ordered carvedilol 12.5 mg oral tablet See Instructions, 1/2 tabs mg Oral BID, # 60 tabs, 3 Refill(s), Pharmacy: [place] [address], 1/2 tabs mg Oral BID Start Date: 12/24/14 Status: Ordered citalopram 20 mg oral tablet 40 mg 2 tabs, Oral, Daily, X 30 days, # 60 tabs, 5 Refill(s), Pharmacy: [place] [address], 2 tabs Oral Daily,x30 days Start Date: 12/16/14 Stop Date: 06/14/15 Status: Ordered Crestor 20 mg oral tablet See Instructions, 1 tabs Oral Bedtime (once a day), # 30 tabs, eRx: [place] [address], 1 tabs Oral Bedtime (once a day) Start Date: 01/19/15 Status: Ordered famotidine 20 mg oral tablet 20 mg 1 tabs, Oral, BID, # 60 tabs, 3 Refill(s), Pharmacy: [place] [address] , 1 tabs Oral BID Start Date: 07/21/14 Status: Ordered Flector Patch 1.3% topical film, extended release 1 patches, Topical, BID, as needed for pain, # 60 patches, 1 Refill(s), Pharmacy : [place] [address] Start Date: 01/03/15 Status: Ordered furosemide 20 mg oral tablet See Instructions, 3 tabs mg Oral BID, # 540 Each, 3 Refill(s), Pharmacy: [place] [address], 3 tabs mg Oral BID Start Date: 07/21/14 Status: Ordered glucometer strips glucometer strips, See Instructions, Contour Next strips Test 4x/day dx: uncontrolled DM, # 1 boxes, 11 Refill(s), Pharmacy: [place] [address], Contour Next strips; Test 4x/day; dx: uncontrolled DM Start Date: 08/31/14 Status: Ordered ibuprofen 600 mg oral tablet 600 mg 1 tabs, Oral, TID, # 90 tabs, 0 Refill(s), Pharmacy: [facility], 1 tabs Oral TID Start Date: 01/26/15 Status: Ordered Klor-Con M20 oral tablet, extended release 20 mEq 1 tabs, Oral, BID, # 180 tabs, 3 Refill(s), Pharmacy: [facility], 1 tabs Oral BID Start Date: 07/21/14 Status: Ordered Lantus Solostar Pen 100 units/mL subcutaneous solution 36 units, SubCutaneous, Bedtime (once a day), # 15 Each, 5 Refill(s), Pharmacy: [place] [address], 36 units SubCutaneous Bedtime (once a day) Start Date: 01/19/15 Status: Ordered metFORMIN 500 mg oral tablet 1 tabs, Oral, BID, # 60 tabs, 5 Refill(s), Pharmacy: [place] [address], 1 tabs Oral BID Start Date: 05/06/14 Status: Ordered NovoLOG FlexPen 100 units/mL subcutaneous solution 12 units, SubCutaneous, TIDAC, # 15 mL, 3 Refill(s), Pharmacy: [place] [address], 12 units SubCutaneous TIDAC Start Date: 12/31/13 Status: Ordered Relion Pen Neddles 31gx6 mm Relion Pen Neddles 31gx6 mm, See Instructions, [facility] ad directed Dx:250.00, # 1 bottles, 5 Refill(s), Pharmacy: [facility], [facility] ad directed; Dx: 250.00 Start [...] Patient Education Author: Luba Kerns DO Date: 01/31/15 [id number] Viral Gastroenteritis Viral gastroenteritis is also called stomach flu. This illness is caused by a certain type of germ (virus). It can cause sudden watery poop (diarrhea) and throwing up (vomiting). This can cause you to lose body fluids (dehydration). This illness usually lasts for 3 to 8 days. It usually goes away on its own. HOME CARE Drink enough fluids to keep your pee (urine) clear or pale yellow. Drink small amounts of fluids often. Ask your doctor how to replace body fluid losses (rehydration). Avoid: Foods high in sugar. Alcohol. Bubbly (carbonated) drinks. Tobacco. Juice. Caffeine drinks. Very hot or cold fluids. Fatty, greasy foods. Eating too much at one time. Dairy products until 24 to 48 hours after your watery poop stops. You may eat foods with active cultures (probiotics). They can be found in some yogurts and supplements. Wash your hands well to avoid spreading the illness. Only take medicines as told by your doctor. Do not give aspirin to children. Do not take medicines for watery poop (antidiarrheals). Ask your doctor if you should keep taking your regular medicines. Keep all doctor visits as told. GET HELP RIGHT AWAY IF: You cannot keep fluids down. You do not pee at least once every 6 to 8 hours. You are short of breath. You see blood in your poop or throw up. This may look like coffee grounds. You have belly (abdominal) pain that gets worse or is just in one small spot (localized). You keep throwing up or having watery poop. You have a fever. The patient is a child younger than 3 months, and he or she has a fever. The patient is a child older than 3 months, and he or she has a fever and problems that do not go away. The patient is a child older than 3 months, and he or she has a fever and problems that suddenly get worse. The patient is a baby, and he or she has no tears when crying. MAKE SURE YOU: Understand these instructions. Will watch your condition. Will get help right away if you are not doing well or get worse. Document Released: 07/30/2008 Document Revised: 05/05/2012 Document Reviewed: ExitCare Patient Information 2015 [place] [employer]. This information is not intended to replace advice given to you by your health care provider. Make sure you discuss any questions you have with your health care provider. No follow up information was provided. Extracted from: Title: OV: v/d Author: Luba Kerns DO Date: 01/31/15 Assessment/Plan 1.Gastroenteritis viral etiology. seems to be improving as appetite has returned and she has not had any diarrhea or vomiting today. Continue Pepcid. No antidiarrheal for now. Can try Tums or Pepto for other upset stomach sxs. note for work provided. f/u prn. Ordered: Office Visit Level 3 Est 46538 Return to Clinic Referrals to Other Providers Referred by: Luba Kerns DO
--- OUTSIDE RECORDS SUMMARY | 2016-05-24 02:25 | XMS REPORT | Referral Summary ---
Author Author Via LEANNE Blake, [facility], [facility] Organization Via LEANNE Blake, [facility] Address Unknown Phone Unavailable Care Team Providers Care Gis Software Developer Name Role Phone Itzel Kerns Primary Care Physician [phone] Encounter VC Date(s): 08/11/14 - 08/11/14 Via LEANNE Blake, [address] [place] [id number] Discharge Diagnosis: Foot mass Discharge Diagnosis: Vaginal yeast infection Discharge Diagnosis: DM2 (diabetes mellitus, type 2) Discharge Disposition: 01-Home or Self Care Attending Physician: Luba Kerns DO Admitting Physician: Luba Kerns DO Vital Signs Most recent to 1 oldest [Reference Range]: Blood Pressure 130/80 mmHg [90-140/60-90 mmHg] (08/11/14 10:28 AM) Problem List Condition Effective Dates Status [...] wheezing, # 1 Each, 0 Refill(s), Pharmacy: [facility] Start Date: 12/28/13 Status: Ordered Aspir-Low mg, Oral, Daily, 0 Refill(s) Start Date: 08/31/13 Status: Ordered candesartan 4 mg oral tablet See Instructions, TAKE ONE TABLET BY MOUTH EVERY DAY, # 30 tabs, 5 Refill(s), Pharmacy: [facility], TAKE ONE TABLET BY MOUTH EVERY DAY Start Date: 09/16/14 Status: Ordered carvedilol 12.5 mg oral tablet See Instructions, 1/2 tabs mg Oral BID, # 60 tabs, 3 Refill(s), Pharmacy: [place] [address], 1/2 tabs mg Oral BID Start Date: 12/24/14 Status: Ordered citalopram 20 mg oral tablet 40 mg 2 tabs, Oral, Daily, X 30 days, # 60 tabs, 5 Refill(s), Pharmacy: [place] [address], 2 tabs Oral Daily,x30 days Start Date: 12/16/14 Stop Date: 06/14/15 Status: Ordered Crestor 20 mg oral tablet See Instructions, 1 tabs Oral Bedtime (once a day), # 30 tabs, eRx: [place] [address], 1 tabs Oral Bedtime (once a day) Start Date: 01/19/15 Status: Ordered famotidine 20 mg oral tablet 20 mg 1 tabs, Oral, BID, # 60 tabs, 3 Refill(s), Pharmacy: [place] [address] , 1 tabs Oral BID Start Date: 07/21/14 Status: Ordered Flector Patch 1.3% topical film, extended release 1 patches, Topical, BID, as needed for pain, # 60 patches, 1 Refill(s), Pharmacy : [place] [address] Start Date: 01/03/15 Status: Ordered furosemide 20 mg oral tablet See Instructions, 3 tabs mg Oral BID, # 540 Each, 3 Refill(s), Pharmacy: [place] [address], 3 tabs mg Oral BID Start Date: 07/21/14 Status: Ordered glucometer strips glucometer strips, See Instructions, Contour Next strips Test 4x/day dx: uncontrolled DM, # 1 boxes, 11 Refill(s), Pharmacy: [place] [address], Contour Next strips; Test 4x/day; dx: uncontrolled DM Start Date: 08/31/14 Status: Ordered ibuprofen 600 mg oral tablet 600 mg 1 tabs, Oral, TID, # 90 tabs, 0 Refill(s), Pharmacy: [place] [address], 1 tabs Oral TID Start Date: 01/26/15 Status: Ordered Klor-Con M20 oral tablet, extended release 20 mEq 1 tabs, Oral, BID, # 180 tabs, 3 Refill(s), Pharmacy: [facility], 1 tabs Oral BID Start Date: 07/21/14 Status: Ordered Lantus Solostar Pen 100 units/mL subcutaneous solution 36 units, SubCutaneous, Bedtime (once a day), # 15 Each, 5 Refill(s), Pharmacy: [facility], 36 units SubCutaneous Bedtime (once a day) Start Date: 01/19/15 Status: Ordered metFORMIN 500 mg oral tablet 1 tabs, Oral, BID, # 60 tabs, 5 Refill(s), Pharmacy: [facility], 1 tabs Oral BID Start Date: 05/06/14 Status: Ordered NovoLOG FlexPen 100 units/mL subcutaneous solution 12 units, SubCutaneous, TIDAC, # 15 mL, 3 Refill(s), Pharmacy: [facility], 12 units SubCutaneous TIDAC Start Date: 12/31/13 Status: Ordered Relion Pen Neddles 31gx6 mm Relion Pen Neddles 31gx6 mm, See Instructions, [facility] ad directed Dx:250.00, # 1 bottles, 5 Refill(s), Pharmacy: [place] [address], [facility] ad directed; Dx: 250.00 Start Date: 09/16/14 Status: Ordered spironolactone 25 mg oral tablet 1 tabs, Oral, Daily, # 30 tabs, 0 Refill(s) Start Date: 08/31/13 Status: Ordered Results Chemistry Most recent to 1 oldest [Reference Range]: Hgb A1c [4.1-5.6 %] 10.0 % *HI* (08/11/14 10:46 AM) eAvg Glucose 240.3 mg/dL (08/11/14 10:46 AM) Immunizations Vaccine Date Refusal Reason influenza virus vaccine, live 11/18/12 pneumococcal 23-polyvalent vaccine 11/18/12 Procedures Procedure Date Related Diagnosis Body Site Cardiomyopathy section Pacemaker Social History Social History Type Response Smoking Status Never smoker Assessment and Plan Extracted from: Title: Ambulatory Patient Education Author: Luba Kerns DO Date: 08/11/14 Family Medicine Diabetes and Foot Care Diabetes may cause you to have problems because of poor blood supply ( circulation ) to your feet and legs. This may cause the skin on your feet to become thinner, break easier, and heal more slowly. Your skin may become dry, and the skin may peel and crack. You may also have nerve damage in your legs and feet causing decreased feeling in them. You may not notice minor injuries to your feet that could lead to infections or more serious problems. Taking care of your feet is one of the most important things you can do for yourself. HOME CARE INSTRUCTIONS Wear shoes at all times, even in the house. Do not go barefoot. Bare feet are easily injured. Check your feet daily for blisters, cuts, and redness. If you cannot see the bottom of your feet, use a mirror or ask someone for help. Wash your feet with warm water (do not use hot water) and mild soap. Then pat your feet and the areas between your toes until they are completely dry. Do not soak your feet as this can dry your skin. Apply a moisturizing lotion or petroleum jelly (that does not contain alcohol and is unscented) to the skin on your feet and to dry, brittle toenails. Do not apply lotion between your toes. Trim your toenails straight across. Do not dig under them or around the cuticle. File the edges of your nails with an emery board or nail file. Do not cut corns or calluses or try to remove them with medicine. Wear clean socks or stockings every day. Make sure they are not too tight. Do not wear knee-high stockings since they may decrease blood flow to your legs. Wear shoes that fit properly and have enough cushioning. To break in new shoes, wear them for just a few hours a day. This prevents you from injuring your feet. Always look in your shoes before you put them on to be sure there are no objects inside. Do not cross your legs. This may decrease the blood flow to your feet. If you find a minor scrape, cut, or break in the skin on your feet, keep it and the skin around it clean and dry. These areas may be cleansed with mild soap and water. Do not cleanse the area with peroxide, alcohol, or iodine. When you remove an adhesive bandage, be sure not to damage the skin around it. If you have a wound, look at it several times a day to make sure it is healing. Do not use heating pads or hot water bottles. They may burn your skin. If you have lost feeling in your feet or legs, you may not know it is happening until it is too late. Make sure your health care provider performs a complete foot exam at least annually or more often if you have foot problems. Report any cuts, sores, or bruises to your health care provider immediately. SEEK MEDICAL CARE IF: You have an injury that is not healing. You have cuts or breaks in the skin. You have an ingrown nail. You notice redness on your legs or feet. You feel burning or tingling in your legs or feet. You have pain or cramps in your legs and feet. Your legs or feet are numb. Your feet always feel cold. SEEK IMMEDIATE MEDICAL CARE IF: There is increasing redness, swelling, or pain in or around a wound. There is a red line that goes up your leg. Pus is coming from a wound. You develop a fever or as directed by your health care provider. You notice a bad smell coming from an ulcer or wound. Document Released: 02/08/2001 Document Revised: 10/14/2013 Document Reviewed: [facility] Patient Information [address] [place], [place] [address] [facility]. No follow up information was provided. Extracted from: Title: OV: DM2, yeast, foot mass Author: Luba Kerns DO Date: 08/11/14 Assessment/Plan 1.DM2 (diabetes mellitus, type 2) a1c and microalbumin/creatinine ratio today Discussed ways to motivate her to take insulin consistently. She pledges to do a better job. She is on ARB, ASA Recommended yearly dilated eye exam Microfilament testing is negative today. Ordered: Albumin/Creatinine Ratio, Urine Hemoglobin A1c Office Visit Level 3 Est 62607 Return to Clinic 2.Foot mass podiatry referral. Ordered: Office Visit Level 3 Est 06298 Return to Clinic 3.Vaginal yeast infection Diflucan 150mg po x 1 more dose. If still symptomatic, needsswab toensure accurate diagnosis. She is on Farxiga. If this continues, consider dc med. Ordered: Office Visit Level 3 Est 27707 Return to Clinic Orders: fluconazole, 150 mg 1 tabs, Oral, Daily, # 1 tabs, 0 Refill(s), Pharmacy: [facility], 1 tabs Oral Daily Referrals to Other Providers Referred by: Luba Kerns DO
--- OUTSIDE RECORDS SUMMARY | 2016-05-24 02:25 | XMS REPORT | Referral Summary ---
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 Discharge Disposition: 01-Home or Self Care Attending Physician: Luba Kerns DO Admitting Physician: Luba Kerns DO Vital Signs Most recent to 1 oldest [Reference Range]: Blood Pressure 140/100 mmHg [90-140/60-90 mmHg] (10/24/15 1:56 PM) SpO2 98 % (10/24/15 1:56 PM) Problem List Condition Effective Dates Status [...] wheezing, # 1 Each, 11 Refill(s), Pharmacy: [facility] Start Date: 04/06/15 Status: Ordered Aspir-Low mg, Oral, Daily, 0 Refill(s) Start Date: 08/31/13 Status: Ordered candesartan 4 mg oral tablet See Instructions, TAKE ONE TABLET BY MOUTH ONCE DAILY, # 30 tabs, eRx: [facility], TAKE ONE TABLET BY MOUTH ONCE DAILY Start Date: 10/06/15 Status: Ordered carvedilol 12.5 mg oral tablet See Instructions, 1/2 tabs mg Oral BID, # 90 tabs, 1 Refill(s), Pharmacy: [place] [address], 1/2 tabs mg Oral BID Start Date: 10/20/15 Status: Ordered citalopram 20 mg oral tablet 40 mg 2 tabs, Oral, Daily, X 30 days, # 60 tabs, 5 Refill(s), Pharmacy: [place] [address], 2 tabs Oral Daily,x30 days Start Date: 05/20/15 Stop Date: 11/16/15 Status: Ordered famotidine 20 mg oral tablet 20 mg 1 tabs, Oral, BID, # 180 tabs, 1 Refill(s), Pharmacy: [place] [address], 1 tabs Oral BID Start Date: 10/20/15 Status: Ordered Flector Patch 1.3% topical film, extended release 1 patches, Topical, BID, as needed for pain, # 60 patches, 1 Refill(s), Pharmacy : [place] [address] Start Date: 01/03/15 Status: Ordered furosemide 20 mg oral tablet See Instructions, TAKE THREE TABLETS BY MOUTH TWICE DAILY, # 540 tabs, eRx: [place] [address], TAKE THREE TABLETS BY MOUTH TWICE DAILY Start Date: 09/14/15 Status: Ordered glucometer strips glucometer strips, See Instructions, Contour Next strips Test 4x/day dx: uncontrolled DM, # 1 boxes, 11 Refill(s), Pharmacy: [place] [address], Contour Next strips; Test 4x/day; dx: uncontrolled DM Start Date: 08/31/14 Status: Ordered ibuprofen 600 mg oral tablet 600 mg 1 tabs, Oral, TID, # 90 tabs, 0 Refill(s), Pharmacy: [place] [address], 1 tabs Oral TID Start Date: 01/26/15 Status: Ordered Klor-Con M20 oral tablet, extended release 20 mEq 1 tabs, Oral, BID, # 180 tabs, 0 Refill(s), Pharmacy: [place] [address], 1 tabs Oral BID Start Date: 08/11/15 Status: Ordered Lantus Solostar Pen 100 units/mL subcutaneous solution 36 units, SubCutaneous, Bedtime (once a day), # 15 Each, 5 Refill(s), Pharmacy: [facility], 36 units SubCutaneous Bedtime (once a day) Start Date: 05/30/15 Status: Ordered metFORMIN 500 mg oral tablet 500 mg 1 tabs, Oral, BID, # 180 tabs, 1 Refill(s), Pharmacy: [facility], 1 tabs Oral BID Start Date: 10/20/15 Status: Ordered NovoLOG FlexPen 100 units/mL subcutaneous solution 12 units, SubCutaneous, TIDAC, # 15 mL, 5 Refill(s), Pharmacy: [place] [address], 12 units SubCutaneous TIDAC Start Date: 05/30/15 Status: Ordered Relion Pen Neddles 31gx6 mm Relion Pen Neddles 31gx6 mm, See Instructions, [facility] ad directed Dx:250.00, # 1 bottles, 5 Refill(s), Pharmacy: [place] [address], [facility] ad directed; Dx: 250.00 Start Date: 09/16/14 Status: Ordered RELION PEN NEEDLES [id number] MIS See Instructions, USE DIRECTED, # 50 unknown unit, eRx: [place] [address] , USE DIRECTED Start Date: 08/09/15 Status: Ordered rosuvastatin 20 mg oral tablet See Instructions, TAKE ONE TABLET BY MOUTH ONCE DAILY AT BEDTIME, # 30 tabs, eRx : [place] [address], TAKE ONE TABLET BY MOUTH ONCE DAILY [...] Assessment and Plan Extracted from: Title: OV: colp Author: Luba Kerns DO Date: 10/24/15 Assessment/Plan 1.Low grade squamous intraepithelial lesion (LGSIL) on Papanicolaou smear of cervix Refer to EMBEDDED LINUX DEVELOPER for colp. see above. Ordered: Office Visit Level 3 Est 90113 Return to Clinic 2.Cervical high risk HPV (human papillomavirus) test positive discussed risks of pap/hpv results and the need for further testing. Ordered: Office Visit Level 3 Est 49195 Return to Clinic Referrals to Other Providers Referred by: Luba Kerns DO
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
--- OUTSIDE RECORDS SUMMARY | 2016-05-24 02:26 | XMS REPORT | Referral Summary ---
Author Organization Unknown Address Unknown Phone Unavailable Care Team Providers Care Necktie Maker Name Role Phone Itzel Kerns Primary Care Physician [phone] Encounter VC Date(s): 04/09/14 - 04/09/14 [facility], [facility], Family Medicine [address] [place] [id number] [place] [address] Discharge Diagnosis: Bronchitis Discharge Disposition: Home or Self Care Attending Physician: Luba Kerns DO Admitting Physician: Luba Kerns DO Vital Signs Most recent to 1 oldest [Reference Range]: Temperature Oral 36.1 degC [35.8-37.3 degC] (04/09/14 9:10 AM) Peripheral Pulse 78 bpm Rate [60-100 bpm] (04/09/14 9:10 AM) Blood Pressure 124/90 mmHg [90-140/60-90 mmHg] (04/09/14 9:10 AM) Most recent to 1 oldest [Reference Range]: SpO2 96 % (04/09/14 9:10 AM) Problem List Condition Effective Dates Status [...] wheezing, # 1 Each, 0 Refill(s), Pharmacy: [facility] Start Date: 12/28/13 Status: Ordered albuterol CFC free 90 mcg/inh inhalation aerosol 1 puffs, Inhalation, QID, as needed for wheezing, # 6.7 g, 0 Refill(s), Pharmacy : [facility] [id number] Start Date: 04/05/14 Status: Ordered Aspir-Low mg, Oral, Daily, 0 Refill(s) Start Date: 08/31/13 Status: Ordered azithromycin 250 mg oral tablet 1 packets, Oral, Once, as directed on package labeling, # 6 tabs, 0 Refill(s), Pharmacy: [facility] [id number], 1 packets Oral Once,Instr:as directed on package labeling Special Instructions: as directed on package labeling Start Date: 04/05/14 Status: Ordered candesartan 4 mg oral tablet See Instructions, TAKE ONE TABLET BY MOUTH EVERY DAY, # 30 tabs, 3 Refill(s), Pharmacy: [facility] [id number], TAKE ONE TABLET BY MOUTH EVERY DAY Special Instructions: TAKE ONE TABLET BY MOUTH EVERY DAY Start Date: 01/18/14 Status: Ordered carvedilol 12.5 mg oral tablet See Instructions, 1/2 tabs mg Oral BID, # 60 tabs, 3 Refill(s), Pharmacy: [facility] [id number], 1/2 tabs mg Oral BID Special Instructions: 1/2 tabs mg Oral BID Start Date: 12/11/13 Status: Ordered citalopram 20 mg oral tablet See Instructions, TAKE ONE TABLET BY MOUTH EVERY DAY, # 30 tabs, 3 Refill(s), Pharmacy: [facility] [id number], TAKE ONE TABLET BY MOUTH EVERY DAY Special Instructions: TAKE ONE TABLET BY MOUTH EVERY DAY Start Date: 03/11/14 Status: Ordered famotidine 20 mg oral tablet 1 tabs, Oral, BID, # 60 tabs, 3 Refill(s), Pharmacy: [facility] [id number], 1 tabs Oral BID Start Date: 12/11/13 Status: Ordered Farxiga 5 mg oral tablet 1 tabs, Oral, Daily, # 30 tabs, 11 Refill(s) Start Date: 10/09/13 Status: Ordered Flector Patch 1.3% topical film, extended release 1 patches, Topical, BID, as needed for pain, # 30 patches, 1 Refill(s), Pharmacy : [facility] [id number] Start Date: 12/28/13 Status: Ordered furosemide 20 mg oral tablet See Instructions, 3 tabs mg Oral BID, 0 Refill(s) Special Instructions: 3 tabs mg Oral BID Start Date: 08/31/13 Status: Ordered Klor-Con M20 mEq, Oral, BID, 0 Refill(s) Start Date: 08/31/13 Status: Ordered Lantus Solostar Pen 100 units/mL subcutaneous solution 36 units, SubCutaneous, Bedtime (once a day), # 15 Each, 3 Refill(s), Pharmacy: [facility], 36 units SubCutaneous Bedtime (once a day) Start Date: 12/31/13 Status: Ordered metFORMIN 500 mg oral tablet 1 tabs, Oral, BID, # 60 tabs, 3 Refill(s), Pharmacy: [facility], 1 tabs Oral BID Start Date: 11/04/13 Status: Ordered NovoLOG FlexPen 100 units/mL subcutaneous solution 12 units, SubCutaneous, TIDAC, # 15 mL, 3 Refill(s), Pharmacy: [facility], 12 units SubCutaneous TIDAC Start Date: 12/31/13 Status: Ordered promethazine 12.5 mg oral tablet 1 tabs, Oral, q6hr, # 20 tabs, 0 Refill(s), Pharmacy: [facility], 1 tabs Oral q6hr Start [...] Patient Education Author: Luba Kerns DO Date: 04/09/14 Family Medicine Acute Bronchitis Bronchitis is when the organs and tissues involved in breathing get puffy ( swollen ) and can leak fluid. This makes it harder for air to get in and out of the lungs. You may cough a lot and produce thick spit (mucus ). Acute means the illness started suddenly. HOME CARE Rest. Drink enough fluids to keep the pee (urine ) clear or pale yellow. Medicines may be given that will open up your airways to help you breathe better. Only take medicine as told by your doctor. Use a cool mist vaporizer. This will help to thin any thick spit. Do not smoke. Avoid secondhand smoke. GET HELP RIGHT AWAY IF: You have a temperature by mouth above 102 F (38.9 C), not controlled by medicine. You have chills. You develop severe shortness of breath or chest pain. You have bloody spit mixed with mucus (sputum ). You throw up (vomit ) often. You lose too much body fluid (dehydrated ). You have a severe headache. You feel faint. You do not improve after 1 week of treatment. MAKE SURE YOU: Understand these instructions. Will watch your condition. Will get help right away if you are not doing well or get worse. Document Released: 07/30/2008 Document Revised: 05/05/2012 Document Reviewed: [employer] Patient Information 2014 [employer]. No follow up information was provided. Extracted from: Title: OV: ER f/u, bronchitis Author: Luba Kerns DO Date: 04/09/14 Assessment/Plan 1.Bronchitis Push fluids Finish antibiotics Continue cough medicines Note for work written to return on Saturday if she is feeling better. f/u as scheduled. Ordered: Office Visit Level 3 Est [id number] Return to Clinic Future Scheduled TestsReferral* Return to Clinic 08/31/13 5:06 PM Referrals to Other Providers Referred by: Luba Kerns DO Referred by: Luba Kerns DO
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
--- OUTSIDE RECORDS SUMMARY | 2016-05-24 02:27 | XMS REPORT | Continuity of Care Document ---
Author Author [facility] Organization [facility] Address Unknown Phone Unavailable Allergies Medications Problems Procedures Results Encounters ACCT No. Visit Date/Time Discharge Status Pt. Type Provider Facility Loc./Unit Complaint [id number] 05/29/2013 11:03:00 05/29/2013 23 :59:59 [facility] Outpatient [id number] 04/07/2013 08:18:00 04/07/2013 23 :59:59 [facility] Outpatient
[2016-05-24] MEDS ORDERED: ACETAMINOPHEN 500 MG TABLET PO ONE (02:30)
[2016-05-24] MEDS ORDERED: FURO-154 PO (02:49)
[2016-05-24] MEDS ORDERED: POTA10TA10 PO (02:49)
[2016-05-24] MEDS ORDERED: METF500T4 PO (02:49)
[2016-05-24] MEDS ORDERED: CITA40TA6 PO (02:49)
[2016-05-24] MEDS ORDERED: CAND32TA2 PO (02:49)
[2016-05-24] MEDS ORDERED: ASPI-557 PO (02:49)
[2016-05-24 03:10] VITALS: BP 121/61; PULSE 62; RESP 16; TEMP 98.8; O2SAT 96
--- NOTE | 2016-05-24 03:10 | NUR ---
DEPART PT REPORTS HEADAC HE IS IMPROVING RATE D4/10. REMAINS FREE FROM CHEST PAIN. PT IS GIVEN DISMISSAL INSTRUCTIONS WITH VERBAL UNDERSTANDING. PT LEAVES [facility] WITH HER FRIEND TO ED REGISTRATION DESK
== END 2016-05-24 03:10 | disposition home or self-care (01) ==
LOC: ED 02:16
DX: F43.8 Other reactions to severe stress (principal); M54.2 Cervicalgia; R07.89 Other chest pain; G44.209 Tension-type headache, unspecified, not intractable
CPT/HCPCS: 93005